=== PATIENT | female | born 1980 | race Caucasian/White ===

== ENCOUNTER 2016-12-29 22:30 | Emergency (ER) | payer OTHER ==
[~2016-12-29] VITALS: Ht 170.2 cm; Wt 130.0 kg
[~2016-12-29 22:30] MED LIST: CIPR500T2 PO; CYCL-36 PO; DARV PO; DIFL500T PO; DILA2TAB4 PO; METH750T2 PO
[2016-12-29 22:33] VITALS: BP 158/75; PULSE 96; RESP 15; TEMP 98.5; O2SAT 100
[2016-12-29] MEDS ORDERED: ONDANSETRON HCL 4 MG/2 ML VIAL IVP ONE (23:00)
[2016-12-29] MEDS ORDERED: SODIUM CHLORIDE 0.9% FLUSH 10 ML FLUSH IVF PRN (23:00)
[2016-12-29 23:33] LABS: BLOOD, URINE SMALL (NEG); COMMENT (UR) CULT NOT INDICATED; CULTURE IF INDICATED CULT NOT INDICATED; GLUCOSE,URINE NEG (NEG); KETONE, URINE NEG (NEG); MUCUS URINE FEW /lpf (OCC); NITRITE,URINE NEG (NEG); SQUAMOUS EPITHELIAL CELL URINE 2 /hpf (0-5); URINE COLOR YELLOW (YELLW/STRAW)
[2016-12-29] MEDS ORDERED: ORPHENADRINE INJ 60 MG/2 ML AMP IM ONE (23:45)
--- NOTE | 2016-12-30 00:27 | PD ---
HPI . Right flank pain Chief Complaint: Flank/Kidney Pain Time Seen by Provider: 22:55 Travel History International Travel<30 days: No Contact w/Intl Traveler<30days: No Traveled to known affect area: No History of Present Illness HPI Patient presents with chief complaint of flank pain. It is on the right. She describes a sharp pain which she rates 9/10. Onset was 10 hours ago. She denies any associated symptoms such as urinary tract symptoms, chemical neurological symptoms, fever, GI symptoms. She does state that her pain is exacerbated by movement and relieved by pressing on it. PFSH Past Medical History Cancer: Yes (breast lumpectomy bilat 1995) Cardiovascular Problems: Yes (HTN) Cerebrovascular Accident: Yes Diminished Hearing: No Neurologic: Yes (MENINGITIS) Reproductive: Yes (CYST LT OVARY) Integumentary: Yes (MRSA LT ANKLE 10/04) Migraines: Yes ?: Not LMP: 2014 : 7 Para: 2 Miscarriage: 5 : 0 Ovarian Cysts: Yes (left ovary) Tubal Ligation: Yes (2002) Past Surgical History Cholecystectomy: Yes Tonsillectomy: Yes ( WITH ADENOIDS REMOVED) Other Surgery: Yes (LUMPECTOMY WITH BREAST REDUCTION) Social History Alcohol Use: No Tobacco Use: Yes (1 PPD) Substance Use: No Allergies-Medications (Allergen,Severity, Reaction): Coded Allergies: morphine (Unverified Allergy, Severe, LOCAL HIVES, 12/29/16) tramadol (Unverified Allergy, Severe, VOMITING/ SEIZURE, 12/29/16) codeine (Unverified Allergy, Mild, DEEP SLEEP, 12/29/16) ketorolac (Unverified Allergy, Mild, VOMITING, 12/29/16) Reported Meds & Prescriptions Reported Meds & Active Scripts Active Dolobid (Diflunisal) 500 Mg Tab 500 Mg PO BIDPRN FOR PAIN Dilaudid (Hydromorphone HCl) 2 Mg Tab 2 Mg PO Q6HPRN Cipro (Ciprofloxacin) 500 Mg Tab 500 Mg PO BID Robaxin (Methocarbamol) 750 Mg Tab 750 Mg PO QIDPRN Darvocet-N 100 (Propoxyphene Napsylate/Acetam) Tab 1 Tab PO Q6HPRN FOR PAIN Reported Flexeril (Cyclobenzaprine HCl) 10 Mg Tab 10 Mg PO BID Review of Systems Except as stated in HPI: all other systems reviewed are Neg General / Constitutional: No: Fever, Chills Gastrointestinal: No: Nausea, Vomiting, Diarrhea Genitourinary: Positive: Other (previous hysterectomy), No: Urgency, Frequency , Dysuria Physical Exam Narrative GENERAL: Patient is awake and alert and in no acute distress. Obvious pain with movement. SKIN: warm/dry. HEAD: Normocephalic. Atraumatic. EYES: Pupils equal and round. No scleral icterus. No injection or drainage. ENT: No nasal bleeding or discharge. Mucous membranes pink and moist. NECK: Trachea midline. Full range of motion without pain.. CARDIOVASCULAR: Regular rate and rhythm. RESPIRATORY: No accessory muscle use. Clear to auscultation. Breath sounds equal bilaterally. GASTROINTESTINAL: Abdomen soft. Tender along the entire right side of her abdomen. Bowel sounds present. Nondistended. No CVA tenderness. MUSCULOSKELETAL: No obvious deformities. Obvious pain with movement. NEUROLOGICAL: Awake and alert. No obvious cranial nerve deficits. Motor grossly within normal limits. Normal speech. PSYCHIATRIC: Appropriate mood and affect; insight and judgment normal. Data Data Last Documented VS Vital Signs Date Time Temp Pulse Resp B/P (MAP) Pulse Ox O2 Delivery O2 Flow Rate FiO2 12/29/16 22:33 98.5 96 15 158/75 (102) 100 Room Air Orders Orders Urinalysis - C+S If Indicated (12/29/16 22:56) Ct Abd/Pel W/O Iv Contrast (12/29/16 22:56) Iv Access Insert/Monitor (12/29/16 22:56) Ondansetron Inj (Zofran Inj) (12/29/16 23:00) Sodium Chloride 0.9% Flush (Ns Flush) (12/29/16 23:00) Ed Urine Pregnancytest Poc (12/29/16 22:56) Orphenadrine Inj (Norflex Inj) (12/29/16 23:45) Labs Laboratory Tests Test 12/29/16 23:15 Urine Color YELLOW Urine Turbidity CLEAR Urine pH 6.0 Urine Specific [place] 1.036 Urine Protein 30 mg/dL Urine Glucose (UA) NEG mg/dL Urine Ketones NEG mg/dL Urine Occult Blood SMALL Urine Nitrite NEG Urine Bilirubin NEG Urine Urobilinogen 2.0 MG/DL Urine Leukocyte Esterase NEG Urine RBC 6 /hpf Urine WBC 2 /hpf Urine Squamous Epithelial Cells 2 /hpf Urine Mucus FEW /lpf Microscopic Urinalysis Comment CULT NOT INDICATED MDM Medical Decision Making Medical Screen Exam Complete: Yes Emergency Medical Condition: Yes Differential Diagnosis Differential diagnosis of flank pain includes but is not limited to kidney stone , pyelonephritis, musculoskeletal pain, PE Narrative Course This patient presents with right flank pain. Pain is exacerbated by movement. No associated symptoms. UA>>[address] abd/pelvis: No acute abnormality demonstrated. This patient's pain is most likely musculoskeletal. She reports allergies to codeine, ketorolac, morphine and tramadol. I will discharge her on Flexeril and ibuprofen. Diagnosis Primary Impression: Flank pain Patient Instructions: Flank Pain (ED), General Instructions Med/Other Pt SpecificInfo: Prescription(s) given Scripts Ibuprofen (Ibuprofen) 800 Mg Tab 800 MG PO Q8H Y for Pain/Inflammation, #60 TAB 0 Refills Prov: Anjana Do MD 12/30/16 Cyclobenzaprine (Flexeril) 10 Mg Tab 10 MG PO TID for Muscle Spasm, #15 TAB 0 Refills Prov: Anjana Do MD 12/30/16 Disposition: DISCHARGE HOME Condition: Stable Anjana Do MD Dec 30, 2016 00:26
--- NOTE | 2016-12-30 00:59 | RADRPT ---
EXAM DATE/TIME: 12/30/2016 00:34 [facility] COMPARISON: No previous studies available for comparison. INDICATIONS : Right flank pain. ORAL CONTRAST: No oral contrast ingested. RADIATION DOSE: 33.27 CTDIvol (mGy) ; High dose protocol; Patient body habitus MEDICAL HISTORY : Hypertension. Ovarian cysts. SURGICAL HISTORY : Cholecystectomy. Hysterectomy. ENCOUNTER: Initial ACUITY: 1 day PAIN SCALE: 8/10 LOCATION: Right flank TECHNIQUE: Volumetric scanning of the abdomen and pelvis was performed. Using automated exposure control and ad justment of the mA and/or kV according to patient size, radiation dose was kept as low as reasonably achievable to obtain optimal diagnostic quality images. DICOM format image data is available electro nically for review and comparison. FINDINGS: LOWER LUNGS: The visualized lower lungs are clear. LIVER: Homogeneous density without lesion. There is no dilation of the biliary tree. Patient has had cholec ystectomy.. SPLEEN: Normal size without lesion. PANCREAS: Within normal limits. KIDNEYS: Normal in size and shape. There is no mass, stone, or hydronephrosis. ADRENAL GLANDS: Within normal limits. VASCULAR: There is no aortic aneurysm. BOWEL/MESENTERY: The stomach, small bowel, and colon demonstrate no acute abnormality. There is no free intraperitone al air or fluid. The appendix is well-visualized, normal. ABDOMINAL WALL: Within normal limits. RETROPERITONEUM: There is no lymphadenopathy. BLADDER: No wall thickening or mass. REPRODUCTIVE: Previous hysterectomy. INGUINAL: There is no lymphadenopathy or hernia. MUSCULOSKELETAL: No acute bony abnormality demonstrated. CONCLUSION: No acute abnormality demonstrated. Fernando Callaway MD on December 30, 2016 at 0:55 Board Certified Radiologist. This report was verified electronically.
[2016-12-30] MEDS ORDERED: CYCL10TA PO (01:06)
[2016-12-30] MEDS ORDERED: IBUP1TAB7 PO (01:07)
== END 2016-12-30 01:18 | disposition home or self-care (01) ==
LOC: NEPC 22:30
DX: R10.9 Unspecified abdominal pain (principal); F17.200 Nicotine dependence, unspecified, uncomplicated
CPT/HCPCS: 74176; 81001; 84703; 96372; 96374; 99285; J2360; J2405

== ENCOUNTER 2017-01-04 20:00 | Emergency (ER) | payer OTHER ==
[~2017-01-04] VITALS: Ht 160 cm; Wt 132.4 kg
[~2017-01-04 20:00] MED LIST changes: +CYCL10TA PO; +IBUP1TAB7 PO
[2017-01-04 20:03] VITALS: BP 141/89; PULSE 97; RESP 20; TEMP 98.3; O2SAT 98
[2017-01-04 20:19] VITALS: BP 146/81; PULSE 92; RESP 20; O2SAT 99
[2017-01-04] MEDS ORDERED: SODIUM CHLOR 0.9% 1000 ML INJ 1,000 ML IV SCH ×2 (20:37→21:45)
[2017-01-04] MEDS ORDERED: ONDANSETRON HCL 4 MG/2 ML VIAL IVP ONE (20:45)
[2017-01-04] MEDS ORDERED: SODIUM CHLORIDE 0.9% FLUSH 10 ML FLUSH IV FLUSH PRN (20:45)
--- NOTE | 2017-01-04 20:46 | PD ---
HPI Chief Complaint: Abdominal Pain Time Seen by Provider: 20:25 Travel History International Travel<30 days: No Contact w/Intl Traveler<30days: No Traveled to known affect area: No History of Present Illness HPI The patient is a 36-year-old female that complains of pain in the midline epigastrium as well as suprapubic area midline for 2 days. She does have nausea and vomiting and noticed some bright red stools today. The nausea and vomiting began today. She states she has had diarrhea for the past 4 years. The patient used to be a frequent visitor here in 2007 but moved out of town and has just moved back into town. She does not have a primary care physician or medical records auditor. She states she is allergic to all pain medicines except Dilaudid. She has had a hysterectomy with tubes removed but still has her ovaries. PFSH Past Medical History Asthma: Yes Cancer: Yes (breast lumpectomy bilat 1995, cervical cancer ) Cardiovascular Problems: Yes (HTN) Chemotherapy: Yes Cerebrovascular Accident: Yes Diminished Hearing: No Hypertension: Yes Neurologic: Yes (MENINGITIS) Reproductive: Yes (CYST LT OVARY) Integumentary: Yes (MRSA LT ANKLE 10/04) Migraines: Yes Radiation Therapy: Yes Tetanus Vaccination: < 5 Years Influenza Vaccination: No ?: Unknown : 6 Para: 4 : 0 Ovarian Cysts: Yes (left ovary) Tubal Ligation: Yes (2002) Past Surgical History Cholecystectomy: Yes Hysterectomy: Yes Tonsillectomy: Yes ( WITH ADENOIDS REMOVED) Other Surgery: Yes (BILAT LUMPECTOMY WITH BREAST REDUCTION, BILAT CARPEL TUNNEL ) Social History Alcohol Use: No Tobacco Use: Yes (1 PPD) Substance Use: No Allergies-Medications (Allergen,Severity, Reaction): Coded Allergies: morphine (Unverified Allergy, Severe, LOCAL HIVES, 12/29/16) tramadol (Unverified Allergy, Severe, VOMITING/ SEIZURE, 12/29/16) codeine (Unverified Allergy, Mild, DEEP SLEEP, 12/29/16) ketorolac (Unverified Allergy, Mild, VOMITING, 12/29/16) Reported Meds & Prescriptions Reported Meds & Active Scripts Active Ibuprofen 800 Mg Tab 800 Mg PO Q8H PRN Flexeril (Cyclobenzaprine HCl) 10 Mg Tab 10 Mg PO TID Dolobid (Diflunisal) 500 Mg Tab 500 Mg PO BIDPRN FOR PAIN Dilaudid (Hydromorphone HCl) 2 Mg Tab 2 Mg PO Q6HPRN Ciprofloxacin Hcl 500 Mg Tab 500 Mg PO BID Methocarbamol 750 Mg Tab 750 Mg PO QIDPRN Darvocet-N 100 (Propoxyphene Napsylate/Acetam) Tab 1 Tab PO Q6HPRN FOR PAIN Reported Flexeril (Cyclobenzaprine HCl) 10 Mg Tab 10 Mg PO BID Review of Systems Except as stated in HPI: all other systems reviewed are Neg Physical Exam Narrative GENERAL: The patient is alert, oriented 3, obese in moderate apparent distress with her abdominal discomfort. Her vital signs show blood pressure 141/89 but are otherwise normal. SKIN: Focused skin assessment warm/dry. HEAD: Atraumatic. Normocephalic. EYES: Pupils equal and round. No scleral icterus. No injection or drainage. ENT: No nasal bleeding or discharge. Mucous membranes pink and moist. NECK: Trachea midline. No JVD. CARDIOVASCULAR: Regular rate and rhythm. No murmur appreciated. RESPIRATORY: No accessory muscle use. Clear to auscultation. Breath sounds equal bilaterally. GASTROINTESTINAL: Abdomen soft, with tenderness to direct palpation in the midline epigastrium and midline suprapubic area, nondistended. Hepatic and splenic margins not palpable. No guarding or rebound is present. MUSCULOSKELETAL: No obvious deformities. No clubbing. No cyanosis. No edema. NEUROLOGICAL: Awake and alert. No obvious cranial nerve deficits. Motor grossly within normal limits. Normal speech. PSYCHIATRIC: Appropriate mood and affect; insight and judgment normal. RECTAL EXAM: No masses or tenderness, stool is brown/bright red and guaiac- positive. Only a tiny amount of stool was recovered. Data Data Last Documented VS Vital Signs Date Time Temp Pulse Resp B/P (MAP) Pulse Ox O2 Delivery O2 Flow Rate FiO2 01/04/17 21:11 20 01/04/17 21:11 100 131/60 (83) 99 01/04/17 20:03 98.3 Orders Orders Complete Blood Count With Diff (01/04/17 20:37) Comprehensive Metabolic Panel (01/04/17 20:37) Lipase (01/04/17 20:37) Urinalysis - C+S If Indicated (01/04/17 20:37) Ct Abd/Pel W Iv Contrast(Rout) (01/04/17 20:37) Iv Access Insert/Monitor (01/04/17 20:37) Ecg Monitoring (01/04/17 20:37) Oximetry (01/04/17 20:37) Ondansetron Inj (Zofran Inj) (01/04/17 20:45) Sodium Chlor 0.9% 1000 Ml Inj (Ns 1000 M (01/04/17 20:37) Sodium Chloride 0.9% Flush (Ns Flush) (01/04/17 20:45) Drug Screen, Random Urine (01/04/17 20:37) Iohexol 350 Inj (Omnipaque 350 Inj) (01/04/17 21:20) Pantoprazole Inj (Protonix Inj) (01/04/17 21:45) Famotidine Inj (Pepcid Inj) (01/04/17 21:45) Hydromorphone Pf Inj (Dilaudid Pf Inj) (01/04/17 21:45) Sodium Chlor 0.9% 1000 Ml Inj (Ns 1000 M (01/04/17 21:45) Labs Laboratory Tests Test 01/04/17 20:50 White Blood Count 12.1 TH/MM3 Red Blood Count 4.82 MIL/MM3 Hemoglobin 14.3 GM/DL Hematocrit 41.7 % Mean Corpuscular Volume 86.4 FL Mean Corpuscular Hemoglobin 29.7 PG Mean Corpuscular Hemoglobin Concent 34.3 % Red Cell Distribution Width 12.7 % Platelet Count 290 TH/MM3 Mean Platelet Volume 8.8 FL Neutrophils (%) (Auto) 67.6 % Lymphocytes (%) (Auto) 25.5 % Monocytes (%) (Auto) 4.9 % Eosinophils (%) (Auto) 1.3 % Basophils (%) (Auto) 0.7 % Neutrophils # (Auto) 8.1 TH/MM3 Lymphocytes # (Auto) 3.1 TH/MM3 Monocytes # (Auto) 0.6 TH/MM3 Eosinophils # (Auto) 0.2 TH/MM3 Basophils # (Auto) 0.1 TH/MM3 CBC Comment DIFF FINAL Differential Comment Urine Color YELLOW Urine Turbidity SLIGHT Urine pH 5.5 Urine Specific Sun 1.030 Urine Protein NEG mg/dL Urine Glucose (UA) NEG mg/dL Urine Ketones TRACE mg/dL Urine Occult Blood MOD Urine Nitrite NEG Urine Bilirubin NEG Urine Leukocyte Esterase NEG Urine RBC 4-9 /hpf Urine WBC 0-2 /hpf Urine Squamous Epithelial Cells > 8 /hpf Urine Calcium Oxalate Crystals MOD /hpf Urine Bacteria OCC /hpf Microscopic Urinalysis Comment CULT NOT INDICATED Blood Urea Nitrogen 11 MG/DL Creatinine 0.85 MG/DL Random Glucose 85 MG/DL Total Protein 7.3 GM/DL Albumin 3.8 GM/DL Calcium Level 8.9 MG/DL Alkaline Phosphatase 116 U/L Aspartate Amino Transf (AST/SGOT) 16 U/L Alanine Aminotransferase (ALT/SGPT) 24 U/L Total Bilirubin 0.2 MG/DL Sodium Level 141 MEQ/L Potassium Level 3.6 MEQ/L Chloride Level 106 MEQ/L Carbon Dioxide Level 28.6 MEQ/L Anion Gap 6 MEQ/L Estimat Glomerular Filtration Rate 76 ML/MIN Lipase 195 U/L Urine Opiates Screen NEG Urine Barbiturates Screen NEG Urine Amphetamines Screen NEG Urine Benzodiazepines Screen NEG Urine Cocaine Screen NEG Urine Cannabinoids Screen NEG MDM Medical Decision Making Medical Screen Exam Complete: Yes Emergency Medical Condition: Yes Medical Record Reviewed: Yes Interpretation(s) The urine toxicology screen is negative for all substances tested. The complete metabolic profile is normal and the lipase is normal. The CBC shows a white count of 12,100 but is otherwise unremarkable. The urinalysis shows specific gravity of 1.030, trace ketones, moderate occult blood, moderate calcium oxalate crystals but is otherwise normal and culture is not indicated. The CT abdomen/pelvis with IV contrast shows no acute disease. Differential Diagnosis Anemia, colitis, appendicitis-unlikely, diverticulitis, urinary tract infection , drug seeking behavior Narrative Course It is now 0930 and the patient is demanding something for pain. The only thing she can take is Dilaudid. The patient is suspected of drug seeking behavior. At this time the impression is abdominal pain etiology undetermined. Diagnosis Primary Impression: Abdominal pain of unknown etiology Med/Other Pt SpecificInfo: Prescription(s) given Scripts Ranitidine (Ranitidine) 150 Mg Tab 150 MG PO BID for Heartburn Management, #60 TAB 0 Refills Prov: Zion Marx MD 01/04/17 Promethazine (Phenergan) 25 Mg Tablet 25 MG PO Q6H Y for NAUSEA OR VOMITING, #30 TAB 0 Refills Prov: Zion Marx MD 01/04/17 Omeprazole Magnesium (Prilosec) 20 Mg Tab 20 MG PO DAILY, #30 Prov: Zion Marx MD 01/04/17 Disposition: 01 DISCHARGE HOME Condition: Stable Zion Marx MD Jan 04, 2017 20:46
[2017-01-04 21:05] LABS: AUTOMATED NEUTROPHIL # 8.1 TH/MM3 (1.8-7.7); BASOPHIL # 0.1 TH/MM3 (0-0.2); BASOPHIL % 0.7 % (0.0-2.0); BLOOD, URINE MOD (NEG); EOSINOPHIL # 0.2 TH/MM3 (0-0.4); EOSINOPHIL % 1.3 % (0.0-4.0); GLUCOSE,URINE NEG (NEG); HEMATOCRIT 41.7 % (35.0-46.0); KETONE, URINE TRACE mg/dL (NEG); LYMPH % 25.5 % (9.0-44.0); LYMPHOCYTE # 3.1 TH/MM3 (1.0-4.8); MEAN CELL VOLUME 86.4 FL (80.0-100.0); MEAN CORPUSCULAR HEMOGLOBIN 29.7 PG (27.0-34.0); MEAN CORPUSCULAR HGB CONC 34.3 % (32.0-36.0); MONO % 4.9 % (0.0-8.0); NEUT % 67.6 % (16.0-70.0); NITRITE,URINE NEG (NEG); PH, URINE 5.5 (5.0-8.5); PLATELET COUNT 290 TH/MM3 (150-450); RED BLOOD COUNT 4.82 MIL/MM3 (4.00-5.30); RED CELL DISTRIBUTION WIDTH 12.7 % (11.6-17.2); WHITE BLOOD COUNT 12.1 TH/MM3 (4.0-11.0)
[2017-01-04 21:07] LABS: HEMO FLAGS DIFF FINAL
[2017-01-04 21:09] LABS: URINE COLOR YELLOW (YELLW/STRAW)
[2017-01-04 21:10] LABS: BACTERIA, URINE OCC /hpf; CALCIUM OXALATE CRYSTALS,URINE MOD /hpf; COMMENT (UR) CULT NOT INDICATED; CULTURE IF INDICATED CULT NOT INDICATED; SQUAMOUS EPITHELIAL CELL URINE > 8 /hpf (0-5); WBC, URINE 0-2 /hpf (0-5)
[2017-01-04 21:11] VITALS: BP 131/60; PULSE 100; RESP 20; O2SAT 99
[2017-01-04 21:12] LABS: CHLORIDE 106 MEQ/L (98-107); POTASSIUM 3.6 MEQ/L (3.5-5.1); SODIUM (NA) 141 MEQ/L (136-145)
[2017-01-04 21:16] LABS: ANION GAP 6 MEQ/L (5-15); BICARBONATE 28.6 MEQ/L (21.0-32.0); BLOOD UREA NITROGEN 11 MG/DL (7-18)
[2017-01-04 21:19] LABS: ALT (GPT) 24 U/L (10-53); AST (GOT) 16 U/L (15-37); GLOMERULAR FILTRATION RATE 76 ML/MIN (>89)
[2017-01-04 21:20] LABS: TOTAL BILIRUBIN ADULT 0.2 MG/DL (0.2-1.0)
[2017-01-04] MEDS ORDERED: IOHEXOL 350 MG/ML 10 ML VIAL (for RAD DIAG) IVCONTRAST ONE (21:20)
[2017-01-04 21:22] LABS: ALKALINE PHOSPHATASE 116 U/L (45-117)
[2017-01-04] MEDS ORDERED: HYDROmorphone HCL PF 1 MG/ML VIAL IV PUSH ONE (21:45)
[2017-01-04] MEDS ORDERED: PANTOPRAZOLE SODIUM 40 MG VIAL IVP ONE (21:45)
[2017-01-04] MEDS ORDERED: FAMOTIDINE 20 MG/2 ML VIAL IV PUSH ONE (21:45)
--- NOTE | 2017-01-04 21:49 | RADRPT ---
EXAM DATE/TIME: 01/04/2017 21:14 [facility] COMPARISON: CT ABDOMEN & PELVIS W/O CONTRAST, December 30, 2016, 0:34. INDICATIONS : Abdominal pain. IV CONTRAST: 100 cc Omnipaque 350 (iohexol) IV ORAL CONTRAST: No oral contrast ingested. RADIATION DOSE: 26.18 CTDIvol (mGy) ; Patient body habitus MEDICAL HISTORY : Hypertension. Cervical cancer. SURGICAL HISTORY : Tubal ligation. Hysterectomy. ENCOUNTER: Initial ACUITY: 2 days PAIN SCALE: 8/10 LOCATION: abdomen TECHNIQUE: Volumetric scanning of the abdomen and pelvis was performed. Using automated exposure control and ad justment of the mA and/or kV according to patient size, radiation dose was kept as low as reasonably achievable to obtain optimal diagnostic quality images. DICOM format image data is available electro nically for review and comparison. FINDINGS: LOWER LUNGS: The visualized lower lungs are clear. LIVER: Homogeneous density without lesion. There is no dilation of the biliary tree. Prior cholecystectomy. SPLEEN: Normal size without lesion. PANCREAS: Within normal limits. KIDNEYS: Normal in size and shape. There is no mass, stone or hydronephrosis. ADRENAL GLANDS: Within normal limits. VASCULAR: There is no aortic aneurysm. BOWEL/MESENTERY: The stomach, small bowel, and colon demonstrate no acute abnormality. There is no free intraperitone al air or fluid. ABDOMINAL WALL: Within normal limits. RETROPERITONEUM: There is no lymphadenopathy. BLADDER: No wall thickening or mass. REPRODUCTIVE: Prior hysterectomy. No adnexal mass or fluid collection. INGUINAL: There is no lymphadenopathy or hernia. MUSCULOSKELETAL: Within normal limits for patient age. CONCLUSION: No acute disease. Yovani English Jr., MD on January 04, 2017 at 21:45 Board Certified Radiologist. This report was verified electronically.
[2017-01-04] MEDS ORDERED: PRIL20TA2 PO (21:59)
[2017-01-04] MEDS ORDERED: PROM25TA10 PO (21:59)
[2017-01-04 22:00] VITALS: BP 117/72; PULSE 83; RESP 20; O2SAT 99
[2017-01-04] MEDS ORDERED: RANI150T PO (22:00)
[2017-01-04 23:12] VITALS: BP 127/70
== END 2017-01-04 23:20 | disposition home or self-care (01) ==
LOC: PHED 20:00
DX: R10.13 Epigastric pain (principal); F17.210 Nicotine dependence, cigarettes, uncomplicated
CPT/HCPCS: 74177; 80053; 80307; 81001; 83690; 85025; 96361; 96374; 96375; 99285; C9113; J1170; J2405; J7030; Q9967

== ENCOUNTER 2017-02-09 13:55 | Emergency (ER) | payer OTHER ==
[~2017-02-09 13:55] MED LIST changes: +PRIL20TA2 PO; +PROM25TA10 PO; +RANI150T PO
[2017-02-09 13:56] VITALS: BP 137/90; PULSE 102; RESP 17; TEMP 98; O2SAT 100
[2017-02-09] MEDS ORDERED: cefTRIAXone INJ 2,000 MG in SODIUM CHLORIDE 0.9% INJ 100 ML IV ONE (14:30)
[2017-02-09] MEDS ORDERED: VANCOMYCIN INJ 1,950 MG in SODIUM CHLORID 0.9% 500 ML INJ 500 ML IV ONE (14:30)
[2017-02-09] MEDS ORDERED: SODIUM CHLOR 0.9% 1000 ML INJ 1,000 ML IV ONE ×2 (14:30)
--- NOTE | 2017-02-09 14:48 | PD ---
HPI Chief Complaint: Fever Time Seen by Provider: 14:22 Travel History International Travel<30 days: No Contact w/Intl Traveler<30days: No Traveled to known affect area: No History of Present Illness HPI Patient is a 36-year-old female who presents to emergency room for evaluation of possible meningitis. She reports that she develops high fevers yesterday, reports that this morning, she woke up with neck stiffness. Patient also reports that she has a posterior headache with photophobia, reports that she has had meningitis in the past, reports that her symptoms feel exactly the same as when she was diagnosed with meningitis. Patient reports that she was sick 2 weeks ago with flulike symptoms, reports that she had a nonproductive cough at that time. Reports no recent sick contacts. Patient denies any recent travels or trips. Reports that she did take a dose of motrin prior to coming to the ER. She currently is not on any anticoagulants PFSH Past Medical History Asthma: Yes Cancer: Yes (breast lumpectomy bilat 1995, cervical cancer ) Cardiovascular Problems: Yes (HTN) Chemotherapy: Yes Cerebrovascular Accident: Yes Diminished Hearing: No Hypertension: Yes Neurologic: Yes (MENINGITIS) Reproductive: Yes (CYST LT OVARY) Integumentary: Yes (MRSA LT ANKLE 10/04) Migraines: Yes Radiation Therapy: Yes ?: Not : 6 Para: 4 : 0 Ovarian Cysts: Yes (left ovary) Tubal Ligation: Yes (2002) Past Surgical History Cholecystectomy: Yes Hysterectomy: Yes Tonsillectomy: Yes ( WITH ADENOIDS REMOVED) Other Surgery: Yes (BILAT LUMPECTOMY WITH BREAST REDUCTION, BILAT CARPEL TUNNEL ) Social History Alcohol Use: No Tobacco Use: Yes (1 PPD) Substance Use: No Allergies-Medications (Allergen,Severity, Reaction): Coded Allergies: morphine (Verified Allergy, Severe, LOCAL HIVES, 02/09/17) tramadol (Verified Allergy, Severe, VOMITING/ SEIZURE, 02/09/17) codeine (Verified Allergy, Mild, DEEP SLEEP, 02/09/17) ketorolac (Verified Allergy, Mild, VOMITING, 02/09/17) Reported Meds & Prescriptions Reported Meds & Active Scripts Active Augmentin (Amoxicillin-Clavulanate) 875-125 Mg Tab 1 Tab PO BID 10 Days Ranitidine (Ranitidine HCl) 150 Mg Tab 150 Mg PO BID Phenergan (Promethazine HCl) 25 Mg Tablet 25 Mg PO Q6H PRN Prilosec (Omeprazole Magnesium) 20 Mg Tab 20 Mg PO DAILY Ibuprofen 800 Mg Tab 800 Mg PO Q8H PRN Flexeril (Cyclobenzaprine HCl) 10 Mg Tab 10 Mg PO TID Review of Systems General / Constitutional: Positive: Fever, Chills Eyes: Positive: Photophobia, No: Visual changes HENT: Positive: Neck Stiffness, Neck Pain, No: Headaches Cardiovascular: No: Chest Pain or Discomfort Respiratory: Positive: Cough, No: Shortness of Breath Gastrointestinal: No: Abdominal Pain Genitourinary: No: Dysuria Musculoskeletal: No: Pain Skin: No Rash Neurologic: No: Weakness Psychiatric: No: Depression Endocrine: No: Polydipsia Hematologic/Lymphatic: No: Easy Bruising Physical Exam Narrative GENERAL: moderate distress SKIN: Focused skin assessment warm/dry. HEAD: Atraumatic. Normocephalic. EYES: Pupils equal and round. No scleral icterus. No injection or drainage. ENT: No nasal bleeding or discharge. Mucous membranes pink and moist. NECK: Trachea midline. No JVD. + nuchal rigidity CARDIOVASCULAR: Regular rate and rhythm. No murmur appreciated. RESPIRATORY: No accessory muscle use. Clear to auscultation. Breath sounds equal bilaterally. GASTROINTESTINAL: Abdomen soft, non-tender, nondistended. Hepatic and splenic margins not palpable. MUSCULOSKELETAL: No obvious deformities. No clubbing. No cyanosis. No edema. NEUROLOGICAL: Awake and alert. No obvious cranial nerve deficits. Motor grossly within normal limits. Normal speech. PSYCHIATRIC: Anxious mood and affect; insight and judgment normal. Data Data Last Documented VS Vital Signs Date Time Temp Pulse Resp B/P (MAP) Pulse Ox O2 Delivery O2 Flow Rate FiO2 02/09/17 19:50 02/09/17 18:04 92 18 100 Room Air 02/09/17 13:56 98.0 Orders Orders Complete Blood Count With Diff (02/09/17 14:22) Comprehensive Metabolic Panel (02/09/17 14:22) Prothrombin Time / Inr (Pt) (02/09/17 14:22) Act Partial Throm Time (Ptt) (02/09/17 14:) Urinalysis - C+S If Indicated (02/09/17 14:) Bacterial Antigen Csf (02/09/17 14:22) Csf Cell Count + Differential (02/09/17 14:22) Glucose, Csf (02/09/17 14:22) Total Protein, Csf (02/09/17 14:22) Csf Culture And Gram Stain (02/09/17 14:22) Influenzae A/B Antigen (02/09/17 14:22) Blood Culture (02/09/17 14:22) Ct Brain W/O Iv Contrast(Rout) (02/09/17 14:22) Ed Urine Pregnancytest Poc (02/09/17 14:22) Sodium Chlor 0.9% 1000 Ml Inj (Ns 1000 M (02/09/17 14:30) Sodium Chlor 0.9% 1000 Ml Inj (Ns 1000 M (02/09/17 14:30) Vancomycin Inj (Vancomycin Inj) (02/09/17 14:30) Ceftriaxone Inj (Rocephin Inj) (02/09/17 14:30) Dexamethasone Inj (Decadron Inj) (02/09/17 15:00) Lumbar Puncture (02/09/17 15:30) Acetaminophen (Tylenol) (02/09/17 16:45) Labs Laboratory Tests Test 02/09/17 14:50 02/09/17 15:50 02/09/17 17:39 White Blood Count 10.6 TH/MM3 Red Blood Count 5.16 MIL/MM3 Hemoglobin 15.7 GM/DL Hematocrit 45.5 % Mean Corpuscular Volume 88.1 FL Mean Corpuscular Hemoglobin 30.5 PG Mean Corpuscular Hemoglobin Concent 34.6 % Red Cell Distribution Width 13.6 % Platelet Count 296 TH/MM3 Mean Platelet Volume 8.5 FL Neutrophils (%) (Auto) 63.4 % Lymphocytes (%) (Auto) 26.5 % Monocytes (%) (Auto) 8.0 % Eosinophils (%) (Auto) 1.5 % Basophils (%) (Auto) 0.6 % Neutrophils # (Auto) 6.7 TH/MM3 Lymphocytes # (Auto) 2.8 TH/MM3 Monocytes # (Auto) 0.8 TH/MM3 Eosinophils # (Auto) 0.2 TH/MM3 Basophils # (Auto) 0.1 TH/MM3 CBC Comment DIFF FINAL Differential Comment Prothrombin Time 9.7 SEC Prothromb Time International Ratio 1.0 RATIO Activated Partial Thromboplast Time 27.9 SEC Blood Urea Nitrogen 13 MG/DL Creatinine 0.83 MG/DL Random Glucose 72 MG/DL Total Protein 7.8 GM/DL Albumin 4.0 GM/DL Calcium Level 9.3 MG/DL Alkaline Phosphatase 126 U/L Aspartate Amino Transf (AST/SGOT) 14 U/L Alanine Aminotransferase (ALT/SGPT) 31 U/L Total Bilirubin 0.3 MG/DL Sodium Level 139 MEQ/L Potassium Level 4.0 MEQ/L Chloride Level 104 MEQ/L Carbon Dioxide Level 28.9 MEQ/L Anion Gap 6 MEQ/L Estimat Glomerular Filtration Rate 78 ML/MIN Urine Color YELLOW Urine Turbidity CLEAR Urine pH 7.0 Urine Specific [place] 1.019 Urine Protein NEG mg/dL Urine Glucose (UA) NEG mg/dL Urine Ketones NEG mg/dL Urine Occult Blood NEG Urine Nitrite NEG Urine Bilirubin NEG Urine Urobilinogen LESS THAN 2.0 MG/DL Urine Leukocyte Esterase NEG Urine RBC 3 /hpf Urine WBC LESS THAN 1 /hpf Urine Squamous Epithelial Cells 8 /hpf Urine Mucus FEW /lpf Microscopic Urinalysis Comment CATH-CULT NOT IND CSF Volume (Tube 1) 3.0 ML CSF Supernatant Color (tube 1) CLEAR CSF Gross Blood (Tube 1) 0 CSF Volume (Tube 2) 3.0 ML CSF Supernatant Color (tube 2) CLEAR CSF WBC (Tube 2) 3 /MM3 CSF RBC (Tube 2) 0 /MM3 CSF Volume (Tube 3) 3.0 ML CSF Supernatant Color (tube 3) CLEAR CSF Volume (Tube 4) 6.5 ML CSF Supernatant Color (tube 4) CLEAR CSF Gross Blood (Tube 4) 0 CSF Neutrophils 0 % CSF Lymphocytes 96 % CSF Monocytes 4 % CSF Glucose 53 MG/DL CSF Total Protein 38.4 MG/DL MDM Medical Decision Making Medical Screen Exam Complete: Yes Emergency Medical Condition: Yes Medical Record Reviewed: Yes Interpretation(s) Vital Signs Date Time Temp Pulse Resp B/P (MAP) Pulse Ox O2 Delivery O2 Flow Rate FiO2 02/09/17 13:56 98.0 102 17 137/90 (106) 100 Room Air Differential Diagnosis Cephalgia, meningitis, pneumonia, viral syndrome Narrative Course During the course of the patients emergency department visit, the patients history, examination, and differential diagnosis were reviewed with the patient. The patient was placed on a athletic monitor with oximetry and frequent blood pressure monitoring. The patient had an IV access obtained and blood work sent for analysis. The patient was initially provided 2 g of IV Rocephin, IV vancomycin, IV decadron as well as IVF. Patient with symptoms which are concerning for possible meningitis, patient is agreeable to lumbar puncture The patients laboratory studies were reviewed and remarkable for : Laboratory Tests Test 02/09/17 14:50 02/09/17 15:50 02/09/17 17:39 White Blood Count 10.6 TH/MM3 (4.0-11.0) Red Blood Count 5.16 MIL/MM3 (4.00-5.30) Hemoglobin 15.7 GM/DL (11.6-15.3) Hematocrit 45.5 % (35.0-46.0) Mean Corpuscular Volume 88.1 FL (80.0-100.0) Mean Corpuscular Hemoglobin 30.5 PG (27.0-34.0) Mean Corpuscular Hemoglobin Concent 34.6 % (32.0-36.0) Red Cell Distribution Width 13.6 % (11.6-17.2) Platelet Count 296 TH/MM3 (150-450) Mean Platelet Volume 8.5 FL (7.0-11.0) Neutrophils (%) (Auto) 63.4 % (16.0-70.0) Lymphocytes (%) (Auto) 26.5 % (9.0-44.0) Monocytes (%) (Auto) 8.0 % (0.0-8.0) Eosinophils (%) (Auto) 1.5 % (0.0-4.0) Basophils (%) (Auto) 0.6 % (0.0-2.0) Neutrophils # (Auto) 6.7 TH/MM3 (1.8-7.7) Lymphocytes # (Auto) 2.8 TH/MM3 (1.0-4.8) Monocytes # (Auto) 0.8 TH/MM3 (0-0.9) Eosinophils # (Auto) 0.2 TH/MM3 (0-0.4) Basophils # (Auto) 0.1 TH/MM3 (0-0.2) CBC Comment DIFF FINAL Differential Comment Prothrombin Time 9.7 SEC (9.8-11.6) Prothromb Time International Ratio 1.0 RATIO Activated Partial Thromboplast Time 27.9 SEC (24.3-30.1) Blood Urea Nitrogen 13 MG/DL (7-18) Creatinine 0.83 MG/DL (0.50-1.00) Random Glucose 72 MG/DL (74-106) Total Protein 7.8 GM/DL (6.4-8.2) Albumin 4.0 GM/DL (3.4-5.0) Calcium Level 9.3 MG/DL (8.5-10.1) Alkaline Phosphatase 126 U/L (45-117) Aspartate Amino Transf (AST/SGOT) 14 U/L (15-37) Alanine Aminotransferase (ALT/SGPT) 31 U/L (10-53) Total Bilirubin 0.3 MG/DL (0.2-1.0) Sodium Level 139 MEQ/L (136-145) Potassium Level 4.0 MEQ/L (3.5-5.1) Chloride Level 104 MEQ/L (98-107) Carbon Dioxide Level 28.9 MEQ/L (21.0-32.0) Anion Gap 6 MEQ/L (5-15) Estimat Glomerular Filtration Rate 78 ML/MIN (>89) Urine Color YELLOW (YELLW/STRAW) Urine Turbidity CLEAR (CLEAR) Urine pH 7.0 (5.0-8.5) Urine Specific [place] 1.019 (1.002-1.035) Urine Protein NEG mg/dL (NEG-TRACE) Urine Glucose (UA) NEG mg/dL (NEG) Urine Ketones NEG mg/dL (NEG) Urine Occult Blood NEG (NEG) Urine Nitrite NEG (NEG) Urine Bilirubin NEG (NEG) Urine Urobilinogen LESS THAN 2.0 MG/DL (LESS Urine Leukocyte Esterase NEG (NEG) Urine RBC 3 /hpf (0-3) Urine WBC LESS THAN 1 /hpf (0-5) Urine Squamous Epithelial Cells 8 /hpf (0-5) Urine Mucus FEW /lpf (OCC) Microscopic Urinalysis Comment CATH-CULT NOT IND CSF Volume (Tube 1) 3.0 ML CSF Supernatant Color (tube 1) CLEAR (CLEAR) CSF Gross Blood (Tube 1) 0 (0) CSF Volume (Tube 2) 3.0 ML CSF Supernatant Color (tube 2) CLEAR (CLEAR) CSF WBC (Tube 2) 3 /MM3 (0-10) CSF RBC (Tube 2) 0 /MM3 (NONE) CSF Volume (Tube 3) 3.0 ML CSF Supernatant Color (tube 3) CLEAR (CLEAR) CSF Volume (Tube 4) 6.5 ML CSF Supernatant Color (tube 4) CLEAR (CLEAR) CSF Gross Blood (Tube 4) 0 (0) CSF Neutrophils 0 % CSF Lymphocytes 96 % CSF Monocytes 4 % CSF Glucose 53 MG/DL (40-80) CSF Total Protein 38.4 MG/DL (15.0-45.0) Radiology studies were reviewed and remarkable for; Last Impressions Head CT 02/09/17 1422 Signed Impressions: Service Date/Time: January 14:42 - CONCLUSION: 1. Normal CT of the brain. 2. Paranasal sinus disease with mucosal swelling and opacification involving the ethmoid and sphenoid sinuses. Alex Reaves MD CT of the brain unremarkable, she does have paranasal sinus disease with mucosal swelling, patient with most likely sinusitis. cbc: WNL bmp: wnl UA: Negative ketones, negative nitrates, negative leuk esterase CSF: Clear, 3 white blood cells, 0 neutrophils, 96 leukocytes, 53 glucose Patient with most likely acute sinusitis, patient is feeling much better at this time. Plan to treat her with Augmentin. She will follow up with all cultures from today. She will also follow-up with a primary care doctor, signs and symptoms of when to return to the emergency room was reviewed with patient in detail. Critical Care Narrative Aggregate critical care time was 30 minutes. Time to perform other separately billable procedures was not included in the critical care time. My time did not include minutes spent treating any other patients simultaneously or on activities that did not directly contribute to the patient's treatment. The services I provided to this patient were to treat and/or prevent clinically significant deterioration that could result in: , decompensation, deterioration I provided critical care services requiring my management, as noted below: Chart data review, documentation time, medication orders and management, vital sign assessments/reviewing monitor data, ordering and reviewing lab tests, ordering and interpreting/reviewing x-rays and diagnostic studies, care of the patient and discussion of the patient with the admitting physicians. Diagnosis Primary Impression: Sinusitis Qualified Codes: J32.1 - Chronic frontal sinusitis Additional Impression: Cephalgia Qualified Codes: R51 - Headache Patient Instructions: General Instructions Departure Forms: Tests/Procedures, Work Release Enter return to work date: Feb 13, 2017 Additional Instructions: Please provide patient with a copy of their lab work and studies at discharge* * Please follow up with your primary care doctor in 2-3 days Return to the ER if symptoms worsen or progress Return to the ER as needed Please follow up with all cultures from today Med/Other Pt SpecificInfo: Prescription(s) given Scripts Amoxicillin-Clavulanate (Augmentin) 875-125 Mg Tab 1 TAB PO BID for Infection for 10 Days, #20 TAB 0 Refills Prov: Sandy Perez DO 02/09/17 Disposition: 01 DISCHARGE HOME Condition: Stable Sandy Perez DO Feb 09, 2017 14:48
--- NOTE | 2017-02-09 14:51 | RADRPT ---
EXAM DATE/TIME: 02/09/2017 14:42 [facility] COMPARISON: No previous studies available for comparison. INDICATIONS : Headache, stiff neck, photophobia. RADIATION DOSE: 36.57 CTDIvol (mGy) MEDICAL HISTORY : Stroke. Cardiovascular disease Hypertension. SURGICAL HISTORY : None. ENCOUNTER: Initial ACUITY: 1 day PAIN SCALE: 5/10 LOCATION: Bilateral frontal TECHNIQUE: Multiple contiguous axial images were obtained of the head. Using automated exposure control and adj ustment of the mA and/or kV according to patient size, radiation dose was kept as low as reasonably a chievable to obtain optimal diagnostic quality images. DICOM format image data is available electro nically for review and comparison. FINDINGS: CEREBRUM: The ventricles are normal for age. No evidence of midline shift, mass lesion, hemorrhage or acute in farction. No extra-axial fluid collections are seen. POSTERIOR FOSSA: The cerebellum and brainstem are intact. The 4th ventricle is midline. The cerebellopontine angle i s unremarkable. EXTRACRANIAL: Significant ethmoid and sphenoid sinus disease is noted. The total swelling is identified in the sphe noid sinus. Several ethmoid air cells are opacified. The visualized portion of the orbits is intact. SKULL: The calvaria is intact. No evidence of skull fracture. CONCLUSION: 1. Normal CT of the brain. 2. Paranasal sinus disease with mucosal swelling and opacification involving the ethmoid and sphenoid sinuses. Alex Reaves MD on February 09, 2017 at 14:47 Board Certified Radiologist. This report was verified electronically.
[2017-02-09] MEDS ORDERED: DEXAMETHASONE SOD PHOS 20 MG/5 ML VIAL IV PUSH ONE (15:00)
[2017-02-09 15:20] LABS: AUTOMATED NEUTROPHIL # 6.7 TH/MM3 (1.8-7.7); BASOPHIL # 0.1 TH/MM3 (0-0.2); BASOPHIL % 0.6 % (0.0-2.0); EOSINOPHIL # 0.2 TH/MM3 (0-0.4); EOSINOPHIL % 1.5 % (0.0-4.0); HEMATOCRIT 45.5 % (35.0-46.0); HEMOGLOBIN 15.7 GM/DL (11.6-15.3); LYMPH % 26.5 % (9.0-44.0); LYMPHOCYTE # 2.8 TH/MM3 (1.0-4.8); MEAN CELL VOLUME 88.1 FL (80.0-100.0); MEAN CORPUSCULAR HEMOGLOBIN 30.5 PG (27.0-34.0); MEAN CORPUSCULAR HGB CONC 34.6 % (32.0-36.0); MEAN PLATELET VOLUME 8.5 FL (7.0-11.0); MONOCYTE # 0.8 TH/MM3 (0-0.9); NEUT % 63.4 % (16.0-70.0); PLATELET COUNT 296 TH/MM3 (150-450); RED BLOOD COUNT 5.16 MIL/MM3 (4.00-5.30); RED CELL DISTRIBUTION WIDTH 13.6 % (11.6-17.2); WHITE BLOOD COUNT 10.6 TH/MM3 (4.0-11.0)
[2017-02-09 15:28] LABS: PROTHROMBIN TIME - PATIENT 9.7 SEC (9.8-11.6)
[2017-02-09 15:40] LABS: ALT (GPT) 31 U/L (10-53); AST (GOT) 14 U/L (15-37); BICARBONATE 28.9 MEQ/L (21.0-32.0); BLOOD UREA NITROGEN 13 MG/DL (7-18); CALCIUM 9.3 MG/DL (8.5-10.1); CHLORIDE 104 MEQ/L (98-107); CREATININE 0.83 MG/DL (0.50-1.00); GLOMERULAR FILTRATION RATE 78 ML/MIN (>89); GLUCOSE,RANDOM 72 MG/DL (74-106); SODIUM (NA) 139 MEQ/L (136-145)
[2017-02-09 15:42] LABS: ALKALINE PHOSPHATASE 126 U/L (45-117); TOTAL BILIRUBIN ADULT 0.3 MG/DL (0.2-1.0); TOTAL PROTEIN 7.8 GM/DL (6.4-8.2)
[2017-02-09 16:21] LABS: BILIRUBIN, URINE NEG (NEG); BLOOD, URINE NEG (NEG); GLUCOSE,URINE NEG (NEG); KETONE, URINE NEG (NEG); MUCUS URINE FEW /lpf (OCC); NITRITE,URINE NEG (NEG); SQUAMOUS EPITHELIAL CELL URINE 8 /hpf (0-5); URINE COLOR YELLOW (YELLW/STRAW); URINE LEUKOCYTE ESTERASE NEG (NEG)
[2017-02-09] MEDS ORDERED: ACETAMINOPHEN 325 MG TAB PO ONE (16:45)
--- NOTE | 2017-02-09 17:57 | PD.RAD ---
Post Procedure Progress Note Pre Procedure Diagnosis: (1) Headache (2) Nausea (3) History of bacterial meningitis Post Procedure Diagnosis: (1) History of bacterial meningitis (2) Nausea (3) Headache Procedure Date: Feb 09, 2017 Supervising Radiologist: Stephan Dorado Proceduralist/Assist: Anyi Benavides, RT(R)(), Althea Hernandez RT(R) Anesthesia: Local Plan of Activity Patient to Unit: Other (ED) Patient Condition: Good See PACS Report for procedural detail/treatment Spinal Procedure Lumbar Puncture L3-L4 Fluid Removal (CCs): 16 Fluid Description: Clear Puncture Time: 17:39 Stephan Dorado MD Feb 09, 2017 17:57
[2017-02-09 18:04] VITALS: BP 120/59; PULSE 92; RESP 18; O2SAT 100
[2017-02-09 18:47] LABS: TOTAL PROTEIN,CSF 38.4 MG/DL (15.0-45.0)
[2017-02-09 19:04] LABS: RBC TUBE #2 0 /MM3; SUPERNATE COLOR TUBE #1 CLEAR (CLEAR); WBC TUBE #2 3 /MM3 (0-10)
[2017-02-09 19:05] LABS: CSF LYMPHOCYTES 96 %; CSF MONOCYTES 4 %; CSF NEUTROPHILS 0 %
[2017-02-09] MEDS ORDERED: AUGM875T3 PO (19:50)
--- NOTE | 2017-02-10 10:15 | RADRPT ---
EXAM DATE/TIME: 02/09/2017 18:37 [facility] COMPARISON: No previous studies available for comparison. INDICATIONS : Patient with history of meningitis in need of lumbar puncture to rule out meningitis. MEDICAL HISTORY : Meningitis, Asthma, Cervical cancer, Radiation and chemotherapy CVA, HTN, Left ovary cyst, MRSA, Migr steafn SURGICAL HISTORY : Cholecystectomy, Hysterectomy, Bilateral lumpectomy with breast reduction ENCOUNTER: Initial ACUITY: 1 day PAIN SCORE: 6/10 LOCATION: Head and Neck LUMBAR PUNCTURE TIME: 1739 hours FLUORO TIME: 1.9 minutes IMAGE SERIES: 1 ACCESS LEVEL: L3-4 FLUID: 16 cc of clear CSF was collected and sent to the laboratory for analysis. PROCEDURE : 1. Fluoroscopic guided lumbar puncture. The risks, benefits and alternatives to the procedure were explained and verbal and written consent w as obtained. The site was prepped in sterile fashion. Full sterile technique was used, including ca p, mask, sterile gloves and gown and a large sterile sheet. Hand hygiene and 2% chlorhexidine and/or betadine/alcohol prep was utilized per protocol for cutaneous antisepsis. The skin and subcutaneous tissues were infiltrated with local anesthetic solution. With fluoroscopic guidance the lumbar thecal sac was punctured at the level above. The fluid describ ed above was removed without difficulty. The patient tolerated the procedure well and there were no complications. CONCLUSION: Uncomplicated fluoroscopically guided lumbar puncture. Stephan Dorado MD on February 10, 2017 at 10:13 Board Certified Radiologist. This report was verified electronically.
== END 2017-02-09 20:29 | disposition home or self-care (01) ==
LOC: NEPD 13:55
DX: J32.1 Chronic frontal sinusitis (principal); F17.200 Nicotine dependence, unspecified, uncomplicated
CPT/HCPCS: 62270; 70450; 77003; 80053; 81001; 82945; 84157; 85025; 85610; 85730; 87040; 87070; 87205; 87804; 89051; 96365; 96366; 96368; 96375; 99285; J0696; J1100; J3370; J7030; J7040; 86403

== ENCOUNTER 2017-02-28 23:02 | Emergency (ER) | payer OTHER ==
[~2017-02-28] VITALS: Ht 170.2 cm; Wt 133.6 kg
[~2017-02-28 23:02] MED LIST changes: +AUGM875T3 PO; -CIPR500T2 PO; -CYCL-36 PO; -DARV PO; -DIFL500T PO; -DILA2TAB4 PO; -METH750T2 PO
[2017-02-28 23:08] VITALS: BP 143/92; PULSE 109; RESP 22; TEMP 98.5; O2SAT 99
[2017-02-28 23:24] VITALS: BP 143/92; PULSE 109; RESP 16; TEMP 98.5; O2SAT 99
[2017-02-28] MEDS ORDERED: HYDROmorphone HCL PF 2 MG/ML VIAL IV PUSH ONE (23:30)
[2017-02-28] MEDS ORDERED: SODIUM CHLORIDE 0.9% FLUSH 10 ML FLUSH IV FLUSH PRN (23:30)
[2017-02-28] MEDS ORDERED: ONDANSETRON HCL 4 MG/2 ML VIAL IVP ONE (23:30)
--- NOTE | 2017-02-28 23:32 | PD ---
HPI Chief Complaint: Abdominal Pain Time Seen by Provider: 23:21 Travel History International Travel<30 days: No Contact w/Intl Traveler<30days: No Traveled to known affect area: No History of Present Illness HPI 37 year old female here for evaluation of right-sided abdominal pain and bright red blood per rectum. The patient presented to the emergency department last month for similar symptoms and reports frustration with diagnosis of abdominal pain of unknown etiology. States that for the last 3 days she has had bright red blood per rectum, and abdominal pain started yesterday evening. She reports severe right-sided abdominal pain described as sharp, constant, worse with movements. She denies fevers or chills. No nausea or vomiting. She reports having diarrhea for the last 4 years. History of breast cancer and cervical cancer with history of hysterectomy and cholecystectomy. No rectal pain. No vaginal bleeding or discharge. No urinary symptoms. PFSH Past Medical History Asthma: Yes Cancer: Yes (breast lumpectomy bilat 1995, cervical cancer ) Cardiovascular Problems: Yes (HTN) Chemotherapy: Yes Cerebrovascular Accident: Yes Diminished Hearing: No Hypertension: Yes Neurologic: Yes (MENINGITIS) Reproductive: Yes (CYST LT OVARY) Integumentary: Yes (MRSA LT ANKLE 10/04) Migraines: Yes Radiation Therapy: Yes Tetanus Vaccination: Unknown Influenza Vaccination: No ?: Not : 6 Para: 4 Miscarriage: 5 : 0 Ovarian Cysts: Yes (left ovary) Tubal Ligation: Yes (2002) Past Surgical History Cholecystectomy: Yes Hysterectomy: Yes Tonsillectomy: Yes ( WITH ADENOIDS REMOVED) Other Surgery: Yes (BILAT LUMPECTOMY WITH BREAST REDUCTION, BILAT CARPEL TUNNEL ) Social History Alcohol Use: No Tobacco Use: Yes (1PPD) Substance Use: No Allergies-Medications (Allergen,Severity, Reaction): Coded Allergies: morphine (Verified Allergy, Severe, LOCAL HIVES, 02/09/17) tramadol (Verified Allergy, Severe, VOMITING/ SEIZURE, 02/09/17) codeine (Verified Allergy, Mild, DEEP SLEEP, 02/09/17) ketorolac (Verified Allergy, Mild, VOMITING, 02/09/17) Reported Meds & Prescriptions Reported Meds & Active Scripts Active Augmentin (Amoxicillin-Clavulanate) 875-125 Mg Tab 1 Tab PO BID 10 Days Ranitidine (Ranitidine HCl) 150 Mg Tab 150 Mg PO BID Phenergan (Promethazine HCl) 25 Mg Tablet 25 Mg PO Q6H PRN Prilosec (Omeprazole Magnesium) 20 Mg Tab 20 Mg PO DAILY Ibuprofen 800 Mg Tab 800 Mg PO Q8H PRN Flexeril (Cyclobenzaprine HCl) 10 Mg Tab 10 Mg PO TID Review of Systems Except as stated in HPI: all other systems reviewed are Neg Physical Exam Narrative GENERAL: Well-developed, well-nourished, overweight, no apparent distress. SKIN: Focused skin assessment warm/dry. HEAD: Atraumatic. Normocephalic. EYES: Pupils equal and round. No scleral icterus. No injection or drainage. ENT: No nasal bleeding or discharge. Mucous membranes pink and moist. NECK: Trachea midline. No JVD. CARDIOVASCULAR: Regular rate and rhythm. No murmur appreciated. RESPIRATORY: No accessory muscle use. Clear to auscultation. Breath sounds equal bilaterally. GASTROINTESTINAL: Abdomen soft, nondistended. Moderate right mid and right upper quadrant tenderness without peritoneal signs. Rest of abdomen is mildly tender. No hernias. Normal bowel sounds. RECTUM: No masses, no fissures, no hemorrhoids, heme-negative brown stool. MUSCULOSKELETAL: No obvious deformities. No clubbing. No cyanosis. No edema. NEUROLOGICAL: Awake and alert. No obvious cranial nerve deficits. Motor grossly within normal limits. Normal speech. PSYCHIATRIC: Appropriate mood and affect; insight and judgment normal. Data Data Last Documented VS Vital Signs Date Time Temp Pulse Resp B/P (MAP) Pulse Ox O2 Delivery O2 Flow Rate FiO2 02/28/17 23:45 97 16 132/81 (98) 97 Room Air 02/28/17 23:24 98.5 Orders Orders Urinalysis - C+S If Indicated (02/28/17 23:15) Ed Urine Pregnancytest Poc (02/28/17 23:15) Complete Blood Count With Diff (02/28/17 23:21) Comprehensive Metabolic Panel (02/28/17 23:21) Prothrombin Time / Inr (Pt) (02/28/17 23:21) Act Partial Throm Time (Ptt) (02/28/17 23:21) Iv Access Insert/Monitor (02/28/17 23:21) Ecg Monitoring (02/28/17 23:21) Oximetry (02/28/17 23:21) Ondansetron Inj (Zofran Inj) (02/28/17 23:30) Sodium Chloride 0.9% Flush (Ns Flush) (02/28/17 23:30) Hydromorphone Pf Inj (Dilaudid Pf Inj) (02/28/17 23:30) Ct Abd/Pel W Iv Contrast(Rout) (03/01/17 00:14) Iohexol 350 Inj (Omnipaque 350 Inj) (03/01/17 00:38) Labs Laboratory Tests Test 02/28/17 23:30 White Blood Count 12.9 TH/MM3 Red Blood Count 4.99 MIL/MM3 Hemoglobin 14.2 GM/DL Hematocrit 43.5 % Mean Corpuscular Volume 87.2 FL Mean Corpuscular Hemoglobin 28.5 PG Mean Corpuscular Hemoglobin Concent 32.6 % Red Cell Distribution Width 12.6 % Platelet Count 295 TH/MM3 Mean Platelet Volume 8.7 FL Neutrophils (%) (Auto) 72.5 % Lymphocytes (%) (Auto) 22.2 % Monocytes (%) (Auto) 3.3 % Eosinophils (%) (Auto) 1.5 % Basophils (%) (Auto) 0.5 % Neutrophils # (Auto) 9.3 TH/MM3 Lymphocytes # (Auto) 2.9 TH/MM3 Monocytes # (Auto) 0.4 TH/MM3 Eosinophils # (Auto) 0.2 TH/MM3 Basophils # (Auto) 0.1 TH/MM3 CBC Comment AUTO DIFF Differential Comment AUTO DIFF CONFIRMED Platelet Estimate NORMAL Platelet Morphology Comment NORMAL Red Cell Morphology Comment NORMAL Prothrombin Time 9.9 SEC Prothromb Time International Ratio 1.0 RATIO Activated Partial Thromboplast Time 21.9 SEC Urine Color YELLOW Urine Turbidity SLIGHT Urine pH 6.[address] [place] 1.023 Urine Protein NEG mg/dL Urine Glucose (UA) NEG mg/dL Urine Ketones NEG mg/dL Urine Occult Blood MOD Urine Nitrite NEG Urine Bilirubin NEG Urine Leukocyte Esterase NEG Urine RBC 4-9 /hpf Urine Squamous Epithelial Cells 6-8 /hpf Urine Bacteria OCC /hpf Urine Mucus MOD /lpf Microscopic Urinalysis Comment CULT NOT INDICATED Blood Urea Nitrogen 14 MG/DL Creatinine 0.74 MG/DL Random Glucose 87 MG/DL Total Protein 7.6 GM/DL Albumin 3.8 GM/DL Calcium Level 9.5 MG/DL Alkaline Phosphatase 141 U/L Aspartate Amino Transf (AST/SGOT) 25 U/L Alanine Aminotransferase (ALT/SGPT) 37 U/L Total Bilirubin 0.2 MG/DL Sodium Level 138 MEQ/L Potassium Level 3.7 MEQ/L Chloride Level 104 MEQ/L Carbon Dioxide Level 25.4 MEQ/L Estimat Glomerular Filtration Rate 89 ML/MIN [facility] Medical Decision Making Medical Screen Exam Complete: Yes Emergency Medical Condition: Yes Medical Record Reviewed: Yes Differential Diagnosis Colitis, diverticulitis, appendicitis, ovarian cyst, ovarian torsion, UTI, cystitis, nephrolithiasis, adhesions Narrative Course Vital signs reviewed. CBC: WBC 12.9, hemoglobin 14.2, hematocrit 43.5, platelets 295, neutrophils 72.5 %. CMP is unremarkable. UA shows moderate occult blood, 4-9 RBCs, 6-8 squamous epithelial cells, occasional bacteria, moderate mucous, culture not indicated. Stool is heme negative and brown. CT abdomen pelvis: No acute disease. The patient was given IV Dilaudid and currently rates her pain as 7 out of 10. There are no peritoneal signs on exam. Her stool is heme negative and brown. Hemoglobin is 14.2. I will give the patient another dose of Dilaudid and will discharge her home with some pain medication. She has an appointment with a family doctor in one month. I will also give her the name of the tester waste disposal leakage with whom to follow-up with a stress the importance of follow -up for colonoscopy to evaluate for any polyps or cancer. She was advised on when to return to the emergency department. She verbalizes understanding and agreement with plan. [facility] Point of Care Internal Pos. & Neg. Controls: Passed Fecal Specimen Occult Blood: Negative Comment Heme-negative brown stool. Diagnosis Primary Impression: Abdominal pain Qualified Codes: R10.9 - Unspecified abdominal pain Referrals: Georgiana Bowers MD 3 days Assistant Associate Professor Additional Instructions: Follow-up with a primary care physician this week. Follow-up with tester waste disposal leakage Dr. Bowers or a tester waste disposal leakage of your choice this week. Return to the emergency department for worsening symptoms or any other concerns. Scripts Oxycodone-Acetaminophen (Percocet) 5-325 mg Tab 1 TAB PO Q6H Y for PAIN, #15 TAB 0 Refills Prov: Feliciano Gaston MD 03/01/17 Disposition: 01 DISCHARGE HOME Condition: Stable Feliciano Gaston MD Feb 28, 2017 23:32
[2017-02-28 23:43] VITALS: BP 132/81; PULSE 97; RESP 16; O2SAT 97
[2017-02-28 23:45] VITALS: BP 132/81; PULSE 97; RESP 16; O2SAT 97
[2017-02-28 23:50] LABS: AUTOMATED NEUTROPHIL # 9.3 TH/MM3 (1.8-7.7); BASOPHIL # 0.1 TH/MM3 (0-0.2); BASOPHIL % 0.5 % (0.0-2.0); EOSINOPHIL # 0.2 TH/MM3 (0-0.4); EOSINOPHIL % 1.5 % (0.0-4.0); HEMATOCRIT 43.5 % (35.0-46.0); HEMOGLOBIN 14.2 GM/DL (11.6-15.3); LYMPH % 22.2 % (9.0-44.0); LYMPHOCYTE # 2.9 TH/MM3 (1.0-4.8); MEAN CELL VOLUME 87.2 FL (80.0-100.0); MEAN CORPUSCULAR HEMOGLOBIN 28.5 PG (27.0-34.0); MEAN CORPUSCULAR HGB CONC 32.6 % (32.0-36.0); MEAN PLATELET VOLUME 8.7 FL (7.0-11.0); MONO % 3.3 % (0.0-8.0); MONOCYTE # 0.4 TH/MM3 (0-0.9); NEUT % 72.5 % (16.0-70.0); PLATELET COUNT 295 TH/MM3 (150-450); RED BLOOD COUNT 4.99 MIL/MM3 (4.00-5.30); RED CELL DISTRIBUTION WIDTH 12.6 % (11.6-17.2); WHITE BLOOD COUNT 12.9 TH/MM3 (4.0-11.0)
[2017-02-28 23:51] LABS: BILIRUBIN, URINE NEG (NEG); BLOOD, URINE MOD (NEG); GLUCOSE,URINE NEG (NEG); KETONE, URINE NEG (NEG); NITRITE,URINE NEG (NEG); URINE LEUKOCYTE ESTERASE NEG (NEG)
[2017-02-28 23:59] LABS: CHLORIDE 104 MEQ/L (98-107); SODIUM (NA) 138 MEQ/L (136-145)
[2017-03-01 00:01] LABS: CALCIUM 9.5 MG/DL (8.5-10.1); MUCUS URINE MOD /lpf (OCC); URINE COLOR YELLOW (YELLW/STRAW)
[2017-03-01 00:02] LABS: ALBUMIN 3.8 GM/DL (3.4-5.0); BACTERIA, URINE OCC /hpf; BICARBONATE 25.4 MEQ/L (21.0-32.0); BLOOD UREA NITROGEN 14 MG/DL (7-18); GLUCOSE,RANDOM 87 MG/DL (74-106)
[2017-03-01 00:04] LABS: PROTHROMBIN TIME - PATIENT 9.9 SEC (9.8-11.6)
[2017-03-01 00:05] LABS: ALT (GPT) 37 U/L (10-53); AST (GOT) 25 U/L (15-37); CREATININE 0.74 MG/DL (0.50-1.00); GLOMERULAR FILTRATION RATE 89 ML/MIN (>89)
[2017-03-01 00:07] LABS: TOTAL BILIRUBIN ADULT 0.2 MG/DL (0.2-1.0); TOTAL PROTEIN 7.6 GM/DL (6.4-8.2)
[2017-03-01 00:08] LABS: ALKALINE PHOSPHATASE 141 U/L (45-117)
[2017-03-01] MEDS ORDERED: IOHEXOL 350 MG/ML 10 ML VIAL (for RAD DIAG) IVCONTRAST ONE (00:38)
--- NOTE | 2017-03-01 00:47 | RADRPT ---
EXAM DATE/TIME: 03/01/2017 00:21 [facility] COMPARISON: CT ABDOMEN & PELVIS W CONTRAST, January 04, 2017, 21:14. INDICATIONS : Abdominal pain. Rectal bleeding. IV CONTRAST: 100 cc Omnipaque 350 (iohexol) IV ORAL CONTRAST: No oral contrast ingested. RADIATION DOSE: 22.36 CTDIvol (mGy) MEDICAL HISTORY : Hypertension. SURGICAL HISTORY : Cholecystectomy. Hysterectomy. ENCOUNTER: Initial ACUITY: 4 - 6 days PAIN SCALE: 9/10 LOCATION: Bilateral lower quadrant TECHNIQUE: Volumetric scanning of the abdomen and pelvis was performed. Using automated exposure control and ad justment of the mA and/or kV according to patient size, radiation dose was kept as low as reasonably achievable to obtain optimal diagnostic quality images. DICOM format image data is available electro nically for review and comparison. FINDINGS: LOWER LUNGS: The visualized lower lungs are clear. LIVER: Homogeneous density without lesion. There is no dilation of the biliary tree. Gallbladder is surgica lly absent. SPLEEN: Normal size without lesion. PANCREAS: Within normal limits. KIDNEYS: Normal in size and shape. There is no mass, stone or hydronephrosis. ADRENAL GLANDS: Within normal limits. VASCULAR: There is no aortic aneurysm. BOWEL/MESENTERY: The stomach, small bowel, and colon demonstrate no acute abnormality. There is no free intraperitone al air or fluid. ABDOMINAL WALL: Within normal limits. RETROPERITONEUM: There is no lymphadenopathy. BLADDER: No wall thickening or mass. REPRODUCTIVE: Within normal limits. INGUINAL: There is no lymphadenopathy or hernia. MUSCULOSKELETAL: Within normal limits for patient age. CONCLUSION: No acute disease. Yovani English Jr., MD on March 01, 2017 at 0:43 Board Certified Radiologist. This report was verified electronically.
[2017-03-01] MEDS ORDERED: PERC5TAB12 PO (00:59)
[2017-03-01] MEDS ORDERED: HYDROmorphone HCL PF 2 MG/ML VIAL IV PUSH ONE (01:00)
[2017-03-01 01:11] VITALS: BP 128/90
[2017-03-18] MEDS ORDERED: IBUP1TAB7 PO (16:16)
== END 2017-03-01 01:40 | disposition home or self-care (01) ==
LOC: PHED 23:02
DX: R10.9 Unspecified abdominal pain (principal); K62.5 Hemorrhage of anus and rectum; I10 Essential (primary) hypertension; J45.909 Unspecified asthma, uncomplicated; N83.209 Unspecified ovarian cyst, unspecified side; F17.210 Nicotine dependence, cigarettes, uncomplicated; Z85.3 Personal history of malignant neoplasm of breast; Z85.41 Personal history of malignant neoplasm of cervix uteri; Z86.73 Personal history of transient ischemic attack (TIA), and cerebral infarction without residual deficits; Z88.5 Allergy status to narcotic agent; Z90.49 Acquired absence of other specified parts of digestive tract; Z90.710 Acquired absence of both cervix and uterus; Z79.899 Other long term (current) drug therapy
CPT/HCPCS: 74177; 80053; 81001; 84703; 85025; 85610; 85730; 96374; 96375; 96376; 99285; J1170; J2405; Q9967

== ENCOUNTER 2017-03-08 18:25 | Emergency (ER) | payer OTHER ==
[~2017-03-08 18:25] MED LIST changes: +PERC5TAB12 PO
[2017-03-18] MEDS ORDERED: IBUP1TAB7 PO (16:16)
== END 2017-03-08 19:20 | disposition left against medical advice (07) ==
LOC: PHED 18:25
DX: R05 Cough (principal)
CPT/HCPCS: 99281

== ENCOUNTER 2017-03-14 22:28 | Emergency (ER) | payer OTHER ==
[~2017-03-14] VITALS: Ht 170.2 cm; Wt 135.0 kg
[2017-03-14 22:30] VITALS: BP 134/79; PULSE 103; RESP 18; TEMP 97.4
[2017-03-14] MEDS ORDERED: predniSONE 50 MG TAB PO ONE (22:45)
[2017-03-14] MEDS ORDERED: RESP: ALBUTEROL 2.5 MG/IPRATROPIUM 0.5 MG NEB (SCH) NEB ONE (22:45)
[2017-03-14] MEDS ORDERED: RESP: LIDOCAINE HCL 4% PF 5 ML NEB NEB ONE (22:45)
[2017-03-14] MEDS ORDERED: VENTAER INH ×2 (22:45→23:50)
--- NOTE | 2017-03-14 22:47 | PD ---
HPI Chief Complaint: Pain: Acute or Chronic Time Seen by Provider: 22:37 Travel History International Travel<30 days: No Contact w/Intl Traveler<30days: No Traveled to known affect area: No History of Present Illness HPI The patient is a 37-year-old female who presents emergency Department with multiple complaints. The patient is a 1 month history of productive cough producing green sputum. The patient states she was treated with amoxicillin 3 weeks ago for her cough, continues to have a productive cough with green sputum. She does have a history of tobacco use, last cigarette was just prior to arrival. She does complain of wheezing, denies any outright chest pain or shortness of breath. She also complains of right knee pain over the last 4 days , the pain is better with standing, worse with bending, and radiates from the anterior to lateral aspect of the right knee to the posterior aspect of the right leg. She does have a history of similar pain in the left leg and states she had a DVT several years ago, was on anticoagulation for 6 months. She denies any significant swelling of the right lower extremity. Pain is worse with flexion of the right knee, improved with standing, and moderate in intensity. The patient recently moved back from [place] to the local area in December and does not have a local primary physician. PFSH Past Medical History Asthma: Yes Cancer: Yes (breast lumpectomy bilat 1995, cervical cancer ) Cardiovascular Problems: Yes (htn) Chemotherapy: Yes Cerebrovascular Accident: Yes Diminished Hearing: No Hypertension: Yes Neurologic: Yes (MENINGITIS) Reproductive: Yes (CYST LT OVARY) Integumentary: Yes (MRSA LT ANKLE 10/04) Migraines: Yes Radiation Therapy: Yes ?: Not : 6 Para: 4 Miscarriage: 5 : 0 Ovarian Cysts: Yes (left ovary) Tubal Ligation: Yes (2002) Past Surgical History Cholecystectomy: Yes Hysterectomy: Yes Tonsillectomy: Yes ( WITH ADENOIDS REMOVED) Other Surgery: Yes (BILAT LUMPECTOMY WITH BREAST REDUCTION, BILAT CARPEL TUNNEL ) Social History Alcohol Use: No Tobacco Use: Yes (1PPD) Substance Use: No Allergies-Medications (Allergen,Severity, Reaction): Coded Allergies: morphine (Verified Allergy, Severe, LOCAL HIVES, 03/14/17) tramadol (Verified Allergy, Severe, VOMITING/ SEIZURE, 03/14/17) codeine (Verified Allergy, Mild, DEEP SLEEP, 03/14/17) ketorolac (Verified Allergy, Mild, VOMITING, 03/14/17) Reported Meds & Prescriptions Reported Meds & Active Scripts Active Percocet (Oxycodone-Acetaminophen) 5-325 mg Tab 1 Tab PO Q6H PRN Ranitidine (Ranitidine HCl) 150 Mg Tab 150 Mg PO BID Ibuprofen 800 Mg Tab 800 Mg PO Q8H PRN Reported Ventolin Hfa 18 GM Inh (Albuterol Sulfate) 90 Mcg/Act Aer 2 Puff INH Q4-6H PRN Review of Systems Except as stated in HPI: all other systems reviewed are Neg General / Constitutional: No: Fever Cardiovascular: No: Chest Pain or Discomfort Respiratory: Positive: Cough, Wheezing, No: Shortness of Breath Musculoskeletal: Positive: Edema, Pain, No: Weakness Neurologic: No: Paresthesia, Sensory Disturbance Physical Exam Narrative GENERAL: Awake, alert, nontoxic-appearing 37 year-old female who appears her stated age is in no acute respiratory distress. Morbidly obese. SKIN: Focused skin assessment warm/dry. HEAD: Atraumatic. Normocephalic. EYES: Pupils equal and round. No scleral icterus. No injection or drainage. ENT: No nasal bleeding or discharge. Mucous membranes pink and moist. NECK: Trachea midline. No JVD. CARDIOVASCULAR: Regular rate and rhythm. No murmur appreciated. RESPIRATORY: No accessory muscle use. Few scattered wheezes. MUSCULOSKELETAL: No obvious deformities. Tenderness over the popliteal fossa lateral aspect of the right leg. The patient is able to flex the hip and knee to 90. Positive dorsalis pedal pulses bilateral. Superficial varicosities noted of the lower extremities bilaterally. Pain was elicited with palpation of lateral aspect and posterior aspect of the right knee, worse with flexion and internal rotation, slightly improved with external rotation. NEUROLOGICAL: Awake and alert. No obvious cranial nerve deficits. Motor grossly within normal limits. Normal speech. PSYCHIATRIC: Appropriate mood and affect; insight and judgment normal. Data Data Last Documented VS Vital Signs Date Time Temp Pulse Resp B/P (MAP) Pulse Ox O2 Delivery O2 Flow Rate FiO2 03/14/17 22:40 18 03/14/17 22:30 97.4 103 134/79 (97) Orders Orders Us Leg Venous Doppler (03/14/17 ) Prednisone (Deltasone) (03/14/17 22:45) Albuterol-Ipratropium Neb (Duoneb Neb) (03/14/17 22:45) Lidocaine Pf 4% Neb (Lidocaine Pf 4% Neb (03/14/17 22:45) MDM Medical Decision Making Medical Screen Exam Complete: Yes Emergency Medical Condition: Yes Medical Record Reviewed: Yes Interpretation(s) Ultrasound of the right leg reveals no DVT Differential Diagnosis Differential diagnosis includes bronchitis, congestive heart failure, pneumonia , postnasal drip, tobacco use, DVT, meniscal injury, foreign body right knee, ligament injury, sprain, strain, fracture. Narrative Course The patient was administered prednisone 50 mg orally and duo neb 1 with respiratory lidocaine. Ultrasound of the right lower extremity was ordered to rule out DVT. Ultrasound is negative for DVT. The patient most likely has ligament and/or meniscal injury. She is advised to use a knee brace as needed, activity as tolerated, to follow-up with a primary physician and/or orthopedist. Patient was previously treated for bronchitis with amoxicillin but no steroids or inhaler, I will place her on prednisone and an inhaler. She is advised to stop smoking. Return if symptoms worsen or progress. Diagnosis Primary Impression: Bronchitis Additional Impression: Right knee pain Qualified Codes: M25.561 - Pain in right knee Patient Instructions: General Instructions Additional Instructions: Please provide the patient a copy of her ultrasound results at discharge. Steroids as directed, pain medication as directed. Activity as tolerated. Follow-up with a primary physician and/or orthopedist. Med/Other Pt SpecificInfo: Prescription(s) given Scripts Hydrocodone-Acetaminophen ([place]) 5 Mg-325 Mg Tab 1 TAB PO Q6H Y for PAIN, #10 TAB 0 Refills Prov: Joe Arzola MD 03/14/17 Prednisone (Prednisone) 20 Mg Tab 40 MG PO DAILY for 4 Days, #8 TAB 0 Refills Prov: Joe Arzola MD 03/14/17 Disposition: 01 DISCHARGE HOME Condition: Stable Joe Arzola MD Mar 14, 2017 22:47
--- NOTE | 2017-03-14 23:43 | RADRPT ---
EXAM DATE/TIME: 03/14/2017 23:26 [facility] COMPARISON: No previous studies available for comparison. INDICATIONS : Right leg pain. MEDICAL HISTORY : Stroke. Carcinoma, breast. Asthma. Ovarian cysts. Diabetes. Chemotherapy. Radiation therapy. SURGICAL HISTORY : Tonsillectomy. Cholecystectomy. Hysterectomy. Adenoidectomy. Left knee surgery. Biltaeral lumpectomy . Breast reduction. Bilateral carpal tunnel. ENCOUNTER: Initial ACUITY: 1 week PAIN SCORE: 8/10 LOCATION: Right leg. TECHNIQUE: Venous ultrasound of the leg was performed from the inguinal ligament to the proximal calf. Real-kartik e, color Doppler and spectral tracing, compression and augmentation techniques were used. FINDINGS: There is normal compressibility of the deep venous system from the inguinal region to the proximal ca lf. No echogenic clot is seen in the lumen of the common femoral, femoral, popliteal, and posterior tibial veins. There is a normal response of the venous system to proximal and distal augmentation an d respiration. CONCLUSION: No DVT. Fernando Espinal MD on March 14, 2017 at 23:41 Board Certified Radiologist. This report was verified electronically.
[2017-03-14] MEDS ORDERED: PRED20 PO (23:47)
[2017-03-14] MEDS ORDERED: NORC5TAB PO (23:47)
[2017-03-15 00:06] VITALS: BP 136/78
[2017-03-18] MEDS ORDERED: IBUP1TAB7 PO (16:16)
== END 2017-03-15 00:07 | disposition home or self-care (01) ==
LOC: PHED 22:28
DX: M25.561 Pain in right knee (principal); J45.909 Unspecified asthma, uncomplicated; I10 Essential (primary) hypertension; F17.210 Nicotine dependence, cigarettes, uncomplicated; Z86.73 Personal history of transient ischemic attack (TIA), and cerebral infarction without residual deficits; Z85.3 Personal history of malignant neoplasm of breast; Z85.41 Personal history of malignant neoplasm of cervix uteri
CPT/HCPCS: 93971; 94664; 99284; J7512

== ENCOUNTER 2017-03-18 15:35 | Emergency (ER) | payer OTHER | END 2017-03-18 16:29 | disposition home or self-care (01) | LOC: PHEFT 15:35 | DX: M25.561 Pain in right knee (principal); J45.909 Unspecified asthma, uncomplicated; F17.210 Nicotine dependence, cigarettes, uncomplicated; I10 Essential (primary) hypertension; Z86.73 Personal history of transient ischemic attack (TIA), and cerebral infarction without residual deficits; Z85.41 Personal history of malignant neoplasm of cervix uteri; Z85.3 Personal history of malignant neoplasm of breast | CPT/HCPCS: 99283 ==

== ENCOUNTER 2017-05-19 00:19 | Emergency (ER) | payer OTHER ==
[~2017-05-19] VITALS: Ht 170.2 cm; Wt 138.0 kg
[~2017-05-19 00:19] MED LIST changes: -AUGM875T3 PO; -CYCL10TA PO; -PERC5TAB12 PO; -PRIL20TA2 PO; -PROM25TA10 PO; +VENTAER INH
[2017-05-19 00:32] VITALS: BP 134/85; PULSE 100; RESP 18; TEMP 98.1; O2SAT 99
[2017-05-19] MEDS ORDERED: BENZ100 PO (10:52)
[2017-05-19] MEDS ORDERED: VENTAER INH (10:52)
[2017-05-19] MEDS ORDERED: AZIT500T2 PO (10:52)
[2017-05-19] MEDS ORDERED: PRED-503 PO ×2 (10:52→11:02)
== END 2017-05-19 02:36 | disposition left against medical advice (07) ==
LOC: PHED 00:19
DX: R05 Cough (principal); Z53.21 Procedure and treatment not carried out due to patient leaving prior to being seen by health care provider
CPT/HCPCS: 99281

== ENCOUNTER 2017-05-19 09:49 | Emergency (ER) | payer OTHER ==
[~2017-05-19] VITALS: Ht 170.2 cm; Wt 138.2 kg
[2017-05-19 09:54] VITALS: BP 157/79; PULSE 89; RESP 16; TEMP 97.9; O2SAT 99
--- NOTE | 2017-05-19 10:38 | PD ---
HPI Chief Complaint: Cold / Flu Symptoms Time Seen by Provider: 10:24 Travel History International Travel<30 days: No Contact w/Intl Traveler<30days: No Traveled to known affect area: No History of Present Illness HPI 37-year-old female presents to the emergency department with complaint of cough , runny nose, sore throat since yesterday. Reports history of asthma, COPD, emphysema. Reports tobacco use. Denies fever, vomiting. Denies ear pain. Reports wheezing. Has been using albuterol inhaler with good relief of symptoms but is now out of her inhaler. Reports "a little "chest tightness and shortness of breath. Denies chest pain. No one else with similar symptoms. Has also tried Benadryl for symptom management. Symptoms are mild in severity. No known aggravating factors. Primary care provider is [facility]. Allergies to codeine, Toradol, morphine, tramadol. History is of asthma, COPD, asthma. Has no other medical complaints. No other modifying factors or associated signs and symptoms. PFSH Past Medical History Asthma: Yes Cancer: Yes (breast lumpectomy bilat 1995, cervical cancer ) Cardiovascular Problems: Yes (htn) Chemotherapy: Yes Cerebrovascular Accident: Yes Diabetes: No (BORDERLINE) Diminished Hearing: No Hypertension: Yes Neurologic: Yes (MENINGITIS) Reproductive: Yes (CYST LT OVARY) Integumentary: Yes (MRSA LT ANKLE 10/04) Immunizations Current: Yes Migraines: Yes Radiation Therapy: Yes ?: Not : 6 Para: 4 Miscarriage: 5 : 0 Ovarian Cysts: Yes (left ovary) Tubal Ligation: Yes (2002) Past Surgical History Cholecystectomy: Yes Ear Surgery: Yes (TUBES PLACED BILAT) Hysterectomy: Yes Tonsillectomy: Yes ( WITH ADENOIDS REMOVED) Other Surgery: Yes (BILAT LUMPECTOMY WITH BREAST REDUCTION, BILAT CARPEL TUNNEL ) Social History Alcohol Use: No Tobacco Use: Yes (2 PPD) Substance Use: No Allergies-Medications (Allergen,Severity, Reaction): Coded Allergies: morphine (Verified Allergy, Severe, LOCAL HIVES, 05/19/17) tramadol (Verified Allergy, Severe, VOMITING/ SEIZURE, 05/19/17) codeine (Verified Allergy, Mild, DEEP SLEEP, 05/19/17) ketorolac (Verified Allergy, Mild, VOMITING, 05/19/17) Reported Meds & Prescriptions Reported Meds & Active Scripts Active Deltasone (Prednisone) 20 Mg Tab 40 Mg PO DAILY 4 Days start 05/20/2017 Tessalon Perles (Benzonatate) 100 Mg Cap 100 Mg PO TID PRN 3 Days Azithromycin 500 Mg Tab 500 Mg PO DAILY Ventolin Hfa 18 GM Inh (Albuterol Sulfate) 90 Mcg/Act Aer 2 Puff INH Q4-6H PRN Ventolin Hfa 18 GM Inh (Albuterol Sulfate) 90 Mcg/Act Aer 2 Puff INH Q4-6H PRN Review of Systems Except as stated in HPI: all other systems reviewed are Neg Physical Exam Narrative GENERAL: Well-nourished, well-developed female patient, in no acute distress; afebrile, nontoxic-appearing SKIN: Warm and moist. HEAD: Atraumatic. Normocephalic. EYES: Pupils equal and round. No scleral icterus. No injection or drainage. ENT: Mucosa pink and moist. No erythema or exudates. No uvular edema. No uvular , palatal, or tonsillar deviation. Airway patent. EARS: Bilateral pinnae and external canals appear within normal limits. Bilateral tympanic membranes without erythema, dullness or perforation. NECK: Trachea midline. No lymphadenopathy. CARDIOVASCULAR: Regular rate and rhythm. No murmur appreciated. RESPIRATORY: No accessory muscle use. Lungs sounds clear to auscultation and decreased in bilateral bases. Breath sounds equal bilaterally. No audible wheezing. No retractions or tachypnea. GASTROINTESTINAL: Obese. MUSCULOSKELETAL: No obvious deformities. No clubbing. No cyanosis. No edema. NEUROLOGICAL: Awake and alert. Oriented 3. No obvious cranial nerve deficits. Motor grossly within normal limits. Normal speech. Moves all extremities. 5/5 strength to all extremities. PSYCHIATRIC: Appropriate mood and affect; insight and judgment normal. Data Data Last Documented VS Vital Signs Date Time Temp Pulse Resp B/P (MAP) Pulse Ox O2 Delivery O2 Flow Rate FiO2 05/19/17 09:54 97.9 89 16 157/79 (105) 99 Orders Orders Prednisone (Deltasone) (05/19/17 11:00) Albuterol-Ipratropium Neb (Duoneb Neb) (05/19/17 11:00) Ed Discharge Order (05/19/17 11:22) [facility] Medical Decision Making Medical Screen Exam Complete: Yes Emergency Medical Condition: Yes Medical Record Reviewed: Yes Differential Diagnosis Viral illness, asthma exacerbation, COPD exacerbation, URI Narrative Course 37-year-old female with symptoms of viral illness and asthma/COPD/emphysema exacerbation. Patient is afebrile and nontoxic-appearing. Denies fever, vomiting. DuoNeb 1, Deltasone administered in the ER. 1122: Patient reports improvement after breathing treatment. She denies chest tightness or shortness of breath. Lungs are clear and equal throughout with improved breath sounds in lung bases. Azithromycin, Deltasone, Ventolin inhaler , Tessalon Perles prescribed for home. Instructed patient to follow up with primary care provider. Patient verbalizes understanding and agreement with treatment plan. Patient is medically cleared and stable for discharge. Discussed reasons to return to the emergency department. Patient agrees with treatment plan. The patients vital signs are stable and the patient is stable for outpatient follow-up and treatment. Patient discharged home, stable and in no acute distress. Diagnosis Primary Impression: Viral illness Additional Impression: Asthma exacerbation Qualified Codes: J45.901 - Unspecified asthma with (acute) exacerbation Referrals: [facility] Primary Care Physician Patient Instructions: Asthma (ED), COPD (Chronic Obstructive Pulmonary Disease ) (ED), Cold Symptoms (ED), General Instructions, Safe Use of Cough and Cold Medicines (ED) Departure Forms: Tests/Procedures, Work Release Enter return to work date: May 20, 2017 Additional Instructions: Use Albuterol inhaler as prescribed Take oral steroids as prescribed and complete full course Use Tessalon Perles as prescribed to decrease coughing spasms [id number] decongestants or antihistamines as directed and as needed for symptom management Your cough can last 4-6 weeks Drink plenty of fluids to prevent dehydration Use hot air humidifier to decrease cough exacerbation Turn off ceiling fans and sleep with head of bed elevated Avoid triggers such as second hand smoke, dust, known allergens Follow-up with your primary care provider Return to the emergency department immediately with worsening of symptoms Med/Other Pt SpecificInfo: Prescription(s) given Scripts Prednisone (Deltasone) 20 Mg Tab 40 MG PO DAILY for 4 Days, #8 TAB 0 Refills start 05/20/2017 Prov: Leah Maldonado EMERGENCY DEPARTMENT 05/19/17 Benzonatate (Tessalon Perles) 100 Mg Cap 100 MG PO TID Y for COUGH for 3 Days, CAP 0 Refills Prov: Leah Maldonado 05/19/17 Azithromycin (Azithromycin) 500 Mg Tab 500 MG PO DAILY for Infection, #5 TAB 0 Refills Prov: Leah Maldonado 05/19/17 Albuterol 18 GM Inh (Ventolin Hfa 18 GM Inh) 90 Mcg/Act Aer 2 PUFF INH Q4-6H Y for SOB/WHEEZING, #1 INHALER 0 Refills Prov: Leah Maldonado 05/19/17 Disposition: 01 DISCHARGE HOME Condition: Stable Leah Maldonado May 19, 2017 10:38
[2017-05-19] MEDS ORDERED: BENZ100 PO (10:52)
[2017-05-19] MEDS ORDERED: AZIT500T2 PO (10:52)
[2017-05-19] MEDS ORDERED: PRED-503 PO ×2 (10:52→11:02)
[2017-05-19] MEDS ORDERED: VENTAER INH (10:52)
[2017-05-19] MEDS ORDERED: predniSONE 20 MG TAB PO ONE (11:00)
[2017-05-19] MEDS ORDERED: RESP: ALBUTEROL 2.5 MG/IPRATROPIUM 0.5 MG NEB (SCH) INH ONE (11:00)
== END 2017-05-19 11:50 | disposition home or self-care (01) ==
LOC: PHED 09:49 → PHEFT 11:50
DX: B34.9 Viral infection, unspecified (principal); J45.901 Unspecified asthma with (acute) exacerbation; R07.0 Pain in throat; R09.89 Other specified symptoms and signs involving the circulatory and respiratory systems; I10 Essential (primary) hypertension; J44.9 Chronic obstructive pulmonary disease, unspecified; R73.03 Prediabetes; F17.200 Nicotine dependence, unspecified, uncomplicated; Z86.73 Personal history of transient ischemic attack (TIA), and cerebral infarction without residual deficits; Z86.69 Personal history of other diseases of the nervous system and sense organs; Z86.14 Personal history of Methicillin resistant Staphylococcus aureus infection; Z87.42 Personal history of other diseases of the female genital tract
CPT/HCPCS: 94664; 99283; J7512

== ENCOUNTER 2017-08-02 12:24 | Emergency (ER) | payer OTHER ==
[~2017-08-02] VITALS: Ht 170.2 cm; Wt 141.2 kg
[~2017-08-02 12:24] MED LIST changes: +AZIT500T2 PO; +BENZ100 PO; -IBUP1TAB7 PO; +PRED-503 PO; -RANI150T PO
[2017-08-02 12:29] VITALS: BP 134/65; PULSE 90; RESP 16; TEMP 98.2; O2SAT 99
[2017-08-02] MEDS ORDERED: SODIUM CHLOR 0.9% 1000 ML INJ 1,000 ML IV ONE (13:00)
[2017-08-02] MEDS ORDERED: SODIUM CHLORIDE 0.9% FLUSH 10 ML FLUSH IVF PRN (13:00)
[2017-08-02] MEDS ORDERED: PROCHLORPERAZINE INJ 10 MG/2 ML VIAL IV PUSH ONE (13:00)
[2017-08-02] MEDS ORDERED: diphenhydrAMINE HCL 50 MG/ML VIAL IV PUSH ONE (13:00)
[2017-08-02] MEDS ORDERED: ZOFR4TAB3 SL (13:03)
[2017-08-02] MEDS ORDERED: MECL1TAB42 PO (13:03)
--- NOTE | 2017-08-02 13:04 | PD ---
HPI . Dizziness Chief Complaint: Dizziness Time Seen by Provider: 12:40 Travel History International Travel<30 days: No Contact w/Intl Traveler<30days: No Traveled to known affect area: No History of Present Illness HPI This patient presents with about a 12 hour history of dizziness. She describes a spinning sensation which is associated with nausea and vomiting. She is also reporting diffuse myalgias. She rates the myalgias 5/10. Her dizziness is worse with sitting and better with lying. Her symptoms have been persistent for the last 12 hours. This patient has a history of previous breast and cervical cancer. She has completed treatment. She also reports a previous history of mastoiditis as well as a ruptured TM. [facility] Past Medical History Narrative Medical Breast and cervical cancer. Previous history of diabetes treated with metoprolol. She is not currently on treatment for either the cancer or the diabetes. Her cancer treatment has been completed and she has been told that she no longer needs an oral hypoglycemic. Asthma: Yes Cancer: Yes (breast lumpectomy bilat 1995, cervical cancer ) Cardiovascular Problems: Yes (htn) Chemotherapy: Yes Cerebrovascular Accident: Yes (tia 04/12/2013) Diabetes: No (BORDERLINE) Diminished Hearing: No Hypertension: Yes Neurologic: Yes (MENINGITIS) Reproductive: Yes (CYST LT OVARY) Integumentary: Yes Immunizations Current: Yes Migraines: Yes Radiation Therapy: Yes ?: Not : 6 Para: 4 Miscarriage: 5 : 0 Ovarian Cysts: Yes (left ovary) Tubal Ligation: Yes (2002) Past Surgical History Cholecystectomy: Yes Ear Surgery: Yes (TUBES PLACED BILAT) Hysterectomy: Yes Tonsillectomy: Yes ( WITH ADENOIDS REMOVED) Other Surgery: Yes (BILAT LUMPECTOMY WITH BREAST REDUCTION, BILAT CARPEL TUNNEL ) Social History Alcohol Use: No Tobacco Use: Yes (2 PPD) Substance Use: No Allergies-Medications (Allergen,Severity, Reaction): Coded Allergies: morphine (Verified Allergy, Severe, LOCAL HIVES, 08/02/17) tramadol (Verified Allergy, Severe, VOMITING/ SEIZURE, 08/02/17) codeine (Verified Allergy, Mild, DEEP SLEEP, 08/02/17) ketorolac (Verified Allergy, Mild, VOMITING, 08/02/17) Reported Meds & Prescriptions Reported Meds & Active Scripts Active Zofran Odt (Ondansetron Odt) 4 Mg Tab 4 Mg SL Q6HR PRN Meclizine 25 (Meclizine HCl) 25 Mg Tab 1 Tab PO Q6HR Ventolin Hfa 18 GM Inh (Albuterol Sulfate) 90 Mcg/Act Aer 2 Puff INH Q4-6H PRN Review of Systems Except as stated in HPI: all other systems reviewed are Neg Physical Exam Narrative GENERAL: Awake and alert and in no acute distress. SKIN: warm/dry. HEAD: Normocephalic. Atraumatic. EYES: Pupils equal and round. Extraocular movements are intact. ENT: Mucous membranes pink and moist. NECK: Supple. Full range of motion without pain.. CARDIOVASCULAR: Regular rate and rhythm. Heart sounds normal. RESPIRATORY: No accessory muscle use. Clear to auscultation. Breath sounds equal bilaterally. MUSCULOSKELETAL: No obvious deformities. Normal muscle tone. NEUROLOGICAL: Awake and alert. No obvious cranial nerve deficits. Motor grossly within normal limits. Normal speech. [id number]-dhwa-[id number] exam is intact. PSYCHIATRIC: Appropriate mood and affect; insight and judgment normal. Data Data Last Documented VS Vital Signs Date Time Temp Pulse Resp B/P (MAP) Pulse Ox O2 Delivery O2 Flow Rate FiO2 08/02/17 12:38 16 99 Room Air 08/02/17 12:29 98.2 90 134/65 (88) Orders Orders Basic Metabolic Panel (Bmp) (08/02/17 12:56) Complete Blood Count With Diff (08/02/17 12:56) Ct Brain W/O Iv Contrast(Rout) (08/02/17 12:56) Iv Access Insert/Monitor (08/02/17 12:56) Sodium Chloride 0.9% Flush (Ns Flush) (08/02/17 13:00) Diphenhydramine Inj (Benadryl Inj) (08/02/17 13:00) Prochlorperazine Inj (Compazine Inj) (08/02/17 13:00) Sodium Chlor 0.9% 1000 Ml Inj (Ns 1000 M (08/02/17 13:00) Labs Laboratory Tests Test 08/02/17 12:50 White Blood Count 10.0 TH/MM3 Red Blood Count 4.89 MIL/MM3 Hemoglobin 13.6 GM/DL Hematocrit 43.5 % Mean Corpuscular Volume 89.0 FL Mean Corpuscular Hemoglobin 27.9 PG Mean Corpuscular Hemoglobin Concent 31.4 % Red Cell Distribution Width 12.8 % Platelet Count 339 TH/MM3 Mean Platelet Volume 8.7 FL Neutrophils (%) (Auto) 58.8 % Lymphocytes (%) (Auto) 32.9 % Monocytes (%) (Auto) 5.1 % Eosinophils (%) (Auto) 2.4 % Basophils (%) (Auto) 0.8 % Neutrophils # (Auto) 5.9 TH/MM3 Lymphocytes # (Auto) 3.3 TH/MM3 Monocytes # (Auto) 0.5 TH/MM3 Eosinophils # (Auto) 0.2 TH/MM3 Basophils # (Auto) 0.1 TH/MM3 CBC Comment DIFF FINAL Differential Comment Blood Urea Nitrogen 16 MG/DL Creatinine 0.81 MG/DL Random Glucose 90 MG/DL Calcium Level 8.3 MG/DL Sodium Level 141 MEQ/L Potassium Level 3.5 MEQ/L Chloride Level 108 MEQ/L Carbon Dioxide Level 27.4 MEQ/L Anion Gap 6 MEQ/L Estimat Glomerular Filtration Rate 80 ML/MIN MDM Medical Decision Making Medical Screen Exam Complete: Yes Emergency Medical Condition: Yes Differential Diagnosis Differential diagnosis of dizziness includes but is not limited to vertigo, dehydration, acute blood loss, sepsis, ACS Narrative Course This patient presents with dizziness which she describes as vertigo. Her past medical history is concerning for a history of breast and cervical cancer. She also tells me that she has a remote history of diabetes but is no longer on medication for this. For these reasons, I have ordered basic labs as well as a CT of her brain. In the meantime, she will be treated with IV Benadryl and Compazine as well as a liter of fluid. CBC & BMP Diagram 08/02/17 12:50 Calcium Level 8.3 L Last Impressions Head CT 08/02/17 1256 Signed Impressions: CONCLUSION: Unremarkable study. She is feeling better. She will be discharged home with prescriptions for Zofran and meclizine Diagnosis Primary Impression: Vertigo Additional Impression: Nausea & vomiting Qualified Codes: R11.2 - Nausea with vomiting, unspecified Patient Instructions: General Instructions, Vertigo (DC) Med/Other Pt SpecificInfo: Prescription(s) given Scripts Ondansetron Odt (Zofran Odt) 4 Mg Tab 4 MG SL Q6HR Y for Nausea/Vomiting, #30 TAB 0 Refills Prov: Anjana Do MD 08/02/17 Meclizine HCl (Meclizine 25) 25 Mg Tab 1 TAB PO Q6HR for dizziness, #30 Prov: Anjana Do MD 08/02/17 Disposition: 01 DISCHARGE HOME Condition: Stable Anjana Do MD Aug 02, 2017 13:03
[2017-08-02 13:16] LABS: AUTOMATED NEUTROPHIL # 5.9 TH/MM3 (1.8-7.7); BASOPHIL # 0.1 TH/MM3 (0-0.2); BASOPHIL % 0.8 % (0.0-2.0); EOSINOPHIL # 0.2 TH/MM3 (0-0.4); EOSINOPHIL % 2.4 % (0.0-4.0); HEMATOCRIT 43.5 % (35.0-46.0); HEMOGLOBIN 13.6 GM/DL (11.6-15.3); LYMPH % 32.9 % (9.0-44.0); LYMPHOCYTE # 3.3 TH/MM3 (1.0-4.8); MEAN CORPUSCULAR HEMOGLOBIN 27.9 PG (27.0-34.0); MEAN CORPUSCULAR HGB CONC 31.4 % (32.0-36.0); MEAN PLATELET VOLUME 8.7 FL (7.0-11.0); MONO % 5.1 % (0.0-8.0); MONOCYTE # 0.5 TH/MM3 (0-0.9); NEUT % 58.8 % (16.0-70.0); PLATELET COUNT 339 TH/MM3 (150-450); RED BLOOD COUNT 4.89 MIL/MM3 (4.00-5.30); RED CELL DISTRIBUTION WIDTH 12.8 % (11.6-17.2)
[2017-08-02 13:26] LABS: CALCIUM 8.3 MG/DL (8.5-10.1)
[2017-08-02 13:27] LABS: BICARBONATE 27.4 MEQ/L (21.0-32.0)
[2017-08-02 13:30] LABS: CREATININE 0.81 MG/DL (0.50-1.00)
--- NOTE | 2017-08-02 14:11 | RADRPT ---
EXAM DATE: 08/02/2017 1:27 PM EDT AGE/SEX: 37 years / Female INDICATIONS: Dizziness. Nausea and vomiting. CLINICAL DATA: This is the patient's initial encounter. Patient reports that signs and symptoms have been present for 1 day and indicates a pain score of 0/10. MEDICAL/SURGICAL HISTORY: Cerebrovascular disease. Carcinoma, cervical. Diabetes. Hypertension. Asthma. Tubal ligation. Hysterectomy. RADIATION DOSE: 60.01 CTDI (mGy) ; Patient motion COMPARISON: No prior [place] exams available for comparison. TECHNIQUE: CT of the head without contrast. Using automated exposure control and adjustment of the mA and/or kV according to patient size, radiation dose was kept as low as reasonably achievable to ob tain optimal diagnostic quality images. FINDINGS: There is no evidence for intracranial hemorrhage, mass effect, mass lesions, edema, or extr a-axial fluid collections. The visualized bony structures appear intact. The ventricles are normal size for the patient's age. There are no signs of acute infarction for technique. CONCLUSION: Unremarkable study. Electronically signed by: Lukas Thapa MD 08/02/2017 2:09 PM EDT
[2017-08-02 14:33] VITALS: BP 127/68; PULSE 72; RESP 16; O2SAT 98
== END 2017-08-02 14:36 | disposition home or self-care (01) ==
LOC: PHED 12:24
DX: R42 Dizziness and giddiness (principal); R11.2 Nausea with vomiting, unspecified; M79.1 Myalgia; Z85.41 Personal history of malignant neoplasm of cervix uteri; Z85.3 Personal history of malignant neoplasm of breast; E11.9 Type 2 diabetes mellitus without complications; I10 Essential (primary) hypertension; Z86.73 Personal history of transient ischemic attack (TIA), and cerebral infarction without residual deficits; F17.200 Nicotine dependence, unspecified, uncomplicated
CPT/HCPCS: 70450; 80048; 85025; 96361; 96374; 96375; 99284; J0780; J1200; J7030

== ENCOUNTER 2017-09-20 23:43 | Observation (INO) ==
[2017-09-21 00:09] VITALS: TEMP 97.8
[2017-09-21 00:30] LABS: Baso # (Auto) 0.1 th/mm3 (0.0-0.2); Baso % (Auto) 0.8 % (0.0-2.0); Eos # (Auto) 0.2 th/mm3 (0.0-0.4); Eos % (Auto) 1.8 % (0.0-4.0); Hematocrit 38.5 % (35.0-46.0); Hemoglobin 13.2 gm/dL (11.6-15.3); Lymph # (Auto) 2.8 th/mm3 (1.0-4.8); Lymph % (Auto) 28.9 % (9.0-44.0); Mean Corpuscular HGB Conc 34.3 % (32.0-36.0); Mean Corpuscular Volume 87.4 fL (80.0-100.0); Mean Platelet Volume 8.8 fL (7.0-11.0); Mono # (Auto) 0.9 th/mm3 (0.0-0.9); Mono % (Auto) 9.5 % (0.0-8.0); Neut # (Auto) 5.7 th/mm3 (1.8-7.7); Platelet Count 274 th/mm3 (150-450); Red Cell Distribution Width 13.4 % (11.6-17.2); White Blood Count 9.7 th/mm3 (4.0-11.0)
--- NOTE | 2017-09-21 00:30 | ED ---
HPI General Chief Complaint: Headache Stated Complaint: Headache/EVAC Time Seen by Provider: 09/21/17 00:01 History of Present Illness HPI Narrative: This is a 37-year-old female with a history of cervical cancer, breast cancer, previous CVA in 2016, who presents here today with complaints of left-sided retro-orbital eye pain and associated left-sided numbness and tingling. Patient states that her previous CVA affected her left side. She reports that at that time she was given TPA. She denies any weakness of her left upper left lower extremity. She states that she woke up this morning feeling dizzy and lightheaded. She reports this was non-positional. She states that she felt as though she was laying in bed and the room was spinning. She states that she slept until about 1 PM and at that time had pressure behind her left eye. She reports that she had blurry vision in her left eye. She states it became more severe about 45 minutes prior to arrival. There are no other complaints at time of examination. Related Data Home Medications Medication Instructions Recorded Confirmed No Known Home Medications 09/21/17 09/21/17 Allergies Allergy/AdvReac Type Severity Reaction Status Date / Time morphine Allergy Severe LOCAL HIVES Verified 08/02/17 12:32 tramadol Allergy Severe VOMITING/ Verified 08/02/17 12:32 SEIZURE codeine Allergy Mild DEEP SLEEP Verified 08/02/17 12:32 ketorolac Allergy Mild VOMITING Verified 08/02/17 12:32 Review of Systems Except as stated in HPI: all other systems reviewed are negative Constitutional Denies chills and Denies fever(s) Eyes Reports blurry vision (Left eye) and Denies diplopia ENT Reports headache(s) (Left retro-orbital) and Reports other (Left ear pain) Cardiovascular Denies chest pain, Denies syncope and Denies palpitations Respiratory Denies chest congestion and Denies cough Gastrointestinal Denies dysphagia, Denies nausea and Denies vomiting Genitourinary Denies dysuria and Denies urinary urgency Musculoskeletal Denies back pain and Denies myalgias Integumentary/Breasts Reports system reviewed and no additional complaints, except as docu Neurologic Reports headache(s) (Left retro-orbital), Denies focal weakness and Reports other (Left upper and lower extremity tingling and numbness) Psychiatric Reports system reviewed and no additional complaints, except as docu Endocrine Reports system reviewed and no additional complaints, except as docu [facility] Medical History Medical History FHx: cholecystectomy (Acute) H/O: hysterectomy (Acute) HX: breast cancer (Acute) Hx MRSA infection (Acute) Hx of cervical cancer (Acute) Meningitis (Acute) Stroke (Acute) Surgical History Surgical History H/O: knee surgery (Acute) History of tonsillectomy (Acute) Social History Social History Substance History: No History of Abuse Second Hand Smoke Exposure: No Smoking Status: Current every day smoker Tobacco Type: Cigarettes How Often Do You Have a Drink Containing Alcohol: Never Recent Travel in [facility] within the Last 8 Weeks: No Recent Out of Country Travel within the Last 8 Weeks: No Immunization History Tetanus Immunization: Unsure Hx Influenza Vaccine This Season: No Exam Narrative Exam Narrative: GENERAL: Well-developed well-nourished female in no acute respiratory distress. SKIN: Focused skin assessment warm/dry. HEAD: Atraumatic. Normocephalic. EYES: Pupils equal and round. No scleral icterus. No injection or drainage. ENT: No nasal bleeding or discharge. Mucous membranes pink and moist. NECK: Trachea midline. Supple. CARDIOVASCULAR: Regular rate and rhythm. No murmur appreciated. RESPIRATORY: No accessory muscle use. Clear to auscultation. Breath sounds equal bilaterally. GASTROINTESTINAL: Abdomen soft, non-tender, nondistended. Hepatic and splenic margins not palpable. MUSCULOSKELETAL: No obvious deformities. No clubbing. No cyanosis. No edema. NEUROLOGICAL: Awake and alert. No obvious cranial nerve deficits. Motor grossly within normal limits. Normal speech. Patient is alert having episodes where she starts to shake. She states that she feels as though she is having chills but sometimes can control them. Course Initial Documented Vital Signs Temperature 97.8 F 09/20/17 23:53 Pulse Rate 107 H 09/20/17 23:53 Blood Pressure 160/96 H 09/20/17 23:53 Pulse Oximetry 100 09/20/17 23:53 Last Documented Vital Signs Temperature 97.8 F 09/20/17 23:53 Pulse Rate 107 H 09/21/17 00:09 Blood Pressure 160/96 H 09/20/17 23:53 Pulse Oximetry 100 09/20/17 23:53 Medical Decision Making [facility] Narrative Medical decision making narrative: 37-year-old female presents today with complaints of non-positional dizziness, left-sided retro-orbital pain and numbness and tingling to the left upper and lower extremity. Patient's had previous CVA affecting the left side. The patient has no focal deficits other than the left sided numbness. CT brain shows no evidence of acute process. 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 She is out of the window for TPA. She is still dizzy and still has mild discomfort in her retro- orbital area. She will be admitted to the hospital for TIA versus CVA workup. Case was discussed with Dr. Sandy Garcia. She will be observation admission at first. Differential Diagnosis Differential Diagnosis: TIA versus CVA versus posterior circulation CVA versus metabolic derangement Lab Data Result diagrams: 09/21/17 00:15 09/21/17 00:15 Lab Results 09/21/17 09/21/17 09/21/17 Range/Units 00:15 00:15 00:15 WBC 9.7 (4.0-11.0) th/mm3 RBC 4.40 (4.00-5.30) mil/mm3 Hgb 13.2 (11.6-15.3) gm/dL Hct 38.5 (35.0-46.0) % MCV 87.4 (80.0-100.0) fL MCH 30.0 (27.0-34.0) pg MCHC 34.3 (32.0-36.0) % RDW 13.4 (11.6-17.2) % Plt Count 274 (150-450) th/mm3 MPV 8.8 (7.0-11.0) fL Neut % (Auto) 59.0 (16.0-70.0) % Lymph % (Auto) 28.9 (9.0-44.0) % [place] % (Auto) 9.5 H (0.0-8.0) % Eos % (Auto) 1.8 (0.0-4.0) % Baso % (Auto) 0.8 (0.0-2.0) % Neut # (Auto) 5.7 (1.8-7.7) th/mm3 Lymph # (Auto) 2.8 (1.0-4.8) th/mm3 [place] # (Auto) 0.9 (0.0-0.9) th/mm3 Eos # (Auto) 0.2 (0.0-0.4) th/mm3 Baso # (Auto) 0.1 (0.0-0.2) th/mm3 WBC Differential . Differential Comment Auto diff final PT 10.2 (9.8-11.6) sec INR 1.0 Ratio APTT 24.7 (24.3-30.1) sec Sodium 144 (136-145) meq/L Potassium 4.3 (3.5-5.1) meq/L Chloride 107 (98-107) meq/L Carbon Dioxide 30.0 (21.0-32.0) meq/L Anion Gap 7 (5-15) meq/L BUN 18 (7-18) mg/dL Creatinine 0.92 (0.50-1.00) mg/dL Estimated GFR 69 L (>89) mL/min Random Glucose 81 (74-106) mg/dL Calcium 8.6 (8.5-10.1) mg/dL Total Bilirubin 0.2 (0.2-1.0) mg/dL AST 17 (15-37) U/L ALT 27 (10-53) U/L Alkaline Phosphatase 126 H (45-117) U/L C-Reactive Protein 1.70 H (0.00-0.30) mg/dL Total Protein 7.1 (6.4-8.2) g/dL Albumin 3.6 (3.4-5.0) g/dL Urine Color (Yellw/Straw) Urine Clarity (Clear) Urine pH (5.0-8.5) Ur Specific [place] (1.002-1.035) Urine Protein (Neg-Trace) mg/dL Urine Glucose (UA) (Negative) mg/dL Urine Ketones (Negative) mg/dL Urine Occult Blood (Negative) Urine Nitrate (Negative) Urine Bilirubin (Negative) Urine Urobilinogen (Less than 2) mg/dL Ur Leukocyte Esterase (Negative) Urine RBC (0-3) /hpf Urine WBC (0-5) /hpf Ur Squamous Epith Cells (0-5) /hpf Urine Bacteria (None) /hpf Urine Mucus (Occasional) /lpf Micro UA Comment Urine Culture Comments 09/21/17 Range/Units 00:30 WBC (4.0-11.0) th/mm3 RBC (4.00-5.30) mil/mm3 Hgb (11.6-15.3) gm/dL Hct (35.0-46.0) % MCV (80.0-100.0) fL MCH (27.0-34.0) pg MCHC (32.0-36.0) % RDW (11.6-17.2) % Plt Count (150-450) th/mm3 MPV (7.0-11.0) fL Neut % (Auto) (16.0-70.0) % Lymph % (Auto) (9.0-44.0) % [place] % (Auto) (0.0-8.0) % Eos % (Auto) (0.0-4.0) % Baso % (Auto) (0.0-2.0) % Neut # (Auto) (1.8-7.7) th/mm3 Lymph # (Auto) (1.0-4.8) th/mm3 [place] # (Auto) (0.0-0.9) th/mm3 Eos # (Auto) (0.0-0.4) th/mm3 Baso # (Auto) (0.0-0.2) th/mm3 WBC Differential Differential Comment PT (9.8-11.6) sec INR Ratio APTT (24.3-30.1) sec Sodium (136-145) meq/L Potassium (3.5-5.1) meq/L Chloride (98-107) meq/L Carbon Dioxide (21.0-32.0) meq/L Anion Gap (5-15) meq/L BUN (7-18) mg/dL Creatinine (0.50-1.00) mg/dL Estimated GFR (>89) mL/min Random Glucose (74-106) mg/dL Calcium (8.5-10.1) mg/dL Total Bilirubin (0.2-1.0) mg/dL AST (15-37) U/L ALT (10-53) U/L Alkaline Phosphatase (45-117) U/L C-Reactive Protein (0.00-0.30) mg/dL Total Protein (6.4-8.2) g/dL Albumin (3.4-5.0) g/dL Urine Color Yellow (Yellw/Straw) Urine Clarity Cloudy H (Clear) Urine pH 5.0 (5.0-8.5) Ur Specific [place] 1.024 (1.002-1.035) Urine Protein Negative (Neg-Trace) mg/dL Urine Glucose (UA) Negative (Negative) mg/dL Urine Ketones Negative (Negative) mg/dL Urine Occult Blood Small H (Negative) Urine Nitrate Negative (Negative) Urine Bilirubin Negative (Negative) Urine Urobilinogen 2.0 H (Less than 2) mg/dL Ur Leukocyte Esterase Negative (Negative) Urine RBC 1 (0-3) /hpf Urine WBC 1 (0-5) /hpf Ur Squamous Epith Cells 13 (0-5) /hpf Urine Bacteria Rare H (None) /hpf Urine Mucus Few H (Occasional) /lpf Micro UA Comment Culture not ind Urine Culture Comments Culture not ind Imaging Data Radiologist's impression: Head CT 09/21/17 00:04 CONCLUSION: Discharge Plan Discharge Disposition Patient Disposition: 30 Still Patient Discharge Details Diagnosis: Cephalalgia, Numbness and tingling of left arm and leg, Cerebrovascular accident, old Physicians Team ED Provider: Sam Rivera Primary Care Provider: Denny Gonzales Rxs /Orders / Referrals /Forms Prescriptions: No Action No Known Home Medications RF: 0 Discharge Interventions Interventions: Vital Signs Last Done: 09/21/17 02:56 Status ED Status: With Doctor
[2017-09-21 00:48] LABS: Activated Partial Thrombo Time 24.7 sec (24.3-30.1); Prothrombin Time 10.2 sec (9.8-11.6)
--- NOTE | 2017-09-21 00:57 | CT ---
EXAM DATE: 09/21/2017 12:54 AM EDT AGE/SEX: 37 years / Female INDICATIONS: Cephalgia. CLINICAL DATA: This is the patient's initial encounter. Patient reports that signs and symptoms have been present for 1 day and indicates a pain score of 10/10. MEDICAL/SURGICAL HISTORY: Carcinoma, breast. Carcinoma, cervical. Stroke. Meningitis. Hysterect michael. Colostomy. RADIATION DOSE: 56.35 CTDI (mGy) COMPARISON: [facility], CT BRAIN W/O CONTRAST, 08/02/2017. . TECHNIQUE: CT of the head without contrast. Using automated exposure control and adjustment of the mA and/or kV according to patient size, radiation dose was kept as low as reasonably achievable to ob tain optimal diagnostic quality images. DICOM format image data is available electronically for revi ew and comparison. FINDINGS: Cerebrum: The ventricles are normal for age. No evidence of midline shift, mass lesion, hemorrhage or acute infarction. Stable, benign-appearing basal ganglia calcification No extraaxial fluid collec tions are seen. Posterior Fossa: The cerebellum and brainstem are intact. The 4th ventricle is midline. The cerebe llopontine angle is unremarkable. Extracranial: The visualized portion of the orbits is intact. Skull: The calvaria is intact. No evidence of skull fracture. Negative exam. No change from prior. Electronically signed by: Stephan Dorado MD 09/21/2017 12:56 AM EDT
[2017-09-21 01:01] LABS: Bacteria,Urine Rare /hpf; Bilirubin,Urine Negative (Negative); Clarity,Urine Cloudy (Clear); Color,Urine Yellow (Yellw/Straw); Glucose,Urine (UA) Negative (Negative); Leukocyte Esterase,Urine Negative (Negative); Mucus,Urine Few /lpf (Occasional); Nitrite,Urine Negative (Negative); Specific Gravity,Urine 1.024 (1.002-1.035); Squamous Epithelial Cell,Urine 13 /hpf (0-5)
[2017-09-21 01:12] LABS: Alanine Aminotransferase 27 U/L (10-53); Albumin 3.6 g/dL (3.4-5.0); Anion Gap 7 meq/L (5-15); Aspartate Aminotransferase 17 U/L (15-37); Blood Urea Nitrogen 18 mg/dL (7-18); Calcium 8.6 mg/dL (8.5-10.1); Chloride 107 meq/L (98-107); Glomerular Filtration Rate 69 mL/min (>89); Glucose,Random 81 mg/dL (74-106); Potassium 4.3 meq/L (3.5-5.1); Sodium 144 meq/L (136-145)
[2017-09-21 01:14] LABS: Alkaline Phosphatase 126 U/L (45-117); Total Protein 7.1 g/dL (6.4-8.2)
[2017-09-21 02:58] VITALS: RESP 17
[2017-09-21] MEDS ORDERED: Sod Chloride 0.9% Inj 1,000 ML IV.CONT SCH (03:45)
--- NOTE | 2017-09-21 03:49 | P.HP ---
History of Present Illness Service: [facility] Primary Care Physician: Denny Gonzales MD History of Present Illness: 37-year-old female with a past medical history of previous stroke, history of breast cancer and history of cervical cancer presents to the emergency department for the evaluation of headache with associated left-sided numbness and tingling. Patient reports that her headache is retro-orbital on the left side. She states that her previous CVA was also on the left side. The patient reports that she woke up yesterday morning feeling dizzy and lightheaded. She went back to sleep until around 1 PM and at that time awoke with pressure behind her left eye. She reports blurry vision in the left eye. She states that it became more severe prior to her arrival. At the time of our interview, all of the patient's symptoms have resolved and she is resting comfortably in bed sleeping. 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 - Medical History Medical History: Medical History (Last Updated 09/21/17 @ 00:05 by Suzie Bai) FHx: cholecystectomy H/O: hysterectomy HX: breast cancer Hx MRSA infection Hx of cervical cancer Meningitis Stroke - Surgical History Surgical History: Surgical History (Last Updated 09/21/17 @ 00:05 by Suzie Bai) H/O: knee surgery History of tonsillectomy - Tobacco History Second Hand Smoke Exposure: No Tobacco Use In Past 30 Days: Yes Smoking Status: Current every day smoker Tobacco Type: Cigarettes - Alcohol History How Often Do You Have a Drink Containing Alcohol: Never - Substance Use History Substance History: No History of Abuse - Travel History Recent Travel in the [place] Within the Last 8 Weeks: No Recent Travel Out of the Country Within the Last 8 Weeks: No - Immunization History Tetanus Immunization: Unsure Hx Influenza Vaccine This Season: No Medications and Allergies Active Medications: Active Medications Aspirin (Aspirin) 325 mg PO DAILY MARIO Sodium Chloride (Ns Inj) 1,000 mls @ 70 mls/hr IV.CONT .[id number] MARIO Sodium Chloride (Ns Flush) 2 ml IV.FLUSH PRN PRN PRN Reason: FLUSH AFTER USING IV ACCESS Allergies Allergy/AdvReac Type Severity Reaction Status Date / Time morphine Allergy Severe LOCAL HIVES Verified 08/02/17 12:32 tramadol Allergy Severe VOMITING/ Verified 08/02/17 12:32 SEIZURE codeine Allergy Mild DEEP SLEEP Verified 08/02/17 12:32 ketorolac Allergy Mild VOMITING Verified 08/02/17 12:32 Home Medications Medication Instructions Recorded Confirmed Type No Known Home Medications 09/21/17 09/21/17 History Exam Vital signs: Vital Signs 09/20/17 23:53 09/21/17 00:09 09/21/17 02:56 Temperature 97.8 F Pulse Rate 107 H 107 H 100 H Respiratory Rate 17 Blood Pressure 160/96 H 122/59 L Pulse Oximetry 100 99 Intake & Output 09/20/17 09/20/17 09/21/17 06:59 18:59 06:59 Weight 145.15 kg Narrative: Gen.: No acute distress Head: Normocephalic. Atraumatic. EENT: Pupils equal round and reactive to light. Nose without drainage. Airway intact. Throat without injection. Cardiovascular: Regular rate and rhythm. No murmurs, rubs or gallops. Respiratory: Lungs clear to auscultation bilaterally. No wheezes or rhonchi. Abdomen: Soft, nontender, nondistended. No peritoneal signs. Musculoskeletal: No gross deformities. No edema. Skin: No obvious rashes or erythema. Neuro: Sensory and motor grossly intact. Cranial nerves II through XII grossly intact. Results - Labs CBC & Chem 7: 09/21/17 00:15 09/21/17 00:15 Labs: Laboratory Results - last 24 hr 09/21/17 09/21/17 09/21/17 00:15 00:15 00:15 WBC 9.7 RBC 4.40 Hgb 13.2 Hct 38.5 MCV 87.4 MCH 30.0 MCHC 34.3 RDW 13.4 Plt Count 274 MPV 8.8 Neut % (Auto) 59.0 Lymph % (Auto) 28.9 [place] % (Auto) 9.5 H Eos % (Auto) 1.8 Baso % (Auto) 0.8 Neut # (Auto) 5.7 Lymph # (Auto) 2.8 [place] # (Auto) 0.9 Eos # (Auto) 0.2 Baso # (Auto) 0.1 WBC Differential . Differential Comment Auto diff final PT 10.2 INR 1.0 APTT 24.7 Sodium 144 Potassium 4.3 Chloride 107 Carbon Dioxide 30.0 Anion Gap 7 BUN 18 Creatinine 0.92 Estimated GFR 69 L Random Glucose 81 Calcium 8.6 Total Bilirubin 0.2 AST 17 ALT 27 Alkaline Phosphatase 126 H C-Reactive Protein 1.70 H Total Protein 7.1 Albumin 3.6 Urine Color Urine Clarity Urine pH Ur Specific [place] Urine Protein Urine Glucose (UA) Urine Ketones Urine Occult Blood Urine Nitrate Urine Bilirubin Urine Urobilinogen Ur Leukocyte Esterase Urine RBC Urine WBC Ur Squamous Epith Cells Urine Bacteria Urine Mucus Micro UA Comment Urine Culture Comments 09/21/17 00:30 WBC RBC Hgb Hct MCV MCH MCHC RDW Plt Count MPV Neut % (Auto) Lymph % (Auto) [place] % (Auto) Eos % (Auto) Baso % (Auto) Neut # (Auto) Lymph # (Auto) [place] # (Auto) Eos # (Auto) Baso # (Auto) WBC Differential Differential Comment PT INR APTT Sodium Potassium Chloride Carbon Dioxide Anion Gap BUN Creatinine Estimated GFR Random Glucose Calcium Total Bilirubin AST ALT Alkaline Phosphatase C-Reactive Protein Total Protein Albumin Urine Color Yellow Urine Clarity Cloudy H Urine pH 5.0 Ur Specific [place] 1.024 Urine Protein Negative Urine Glucose (UA) Negative Urine Ketones Negative Urine Occult Blood Small H Urine Nitrate Negative Urine Bilirubin Negative Urine Urobilinogen 2.0 H Ur Leukocyte Esterase Negative Urine RBC 1 Urine WBC 1 Ur Squamous Epith Cells 13 Urine Bacteria Rare H Urine Mucus Few H Micro UA Comment Culture not ind Urine Culture Comments Culture not ind - Imaging Impressions Head CT 09/21/17 00:04 CONCLUSION: Caprini VTE Risk Assessment Caprini VTE Risk Assessment: No/Low Risk (score <= 1) Caprini Risk Assessment Model: Point Value = 1 Point Value = 2 Point Value = 3 Point Value = 5 Age 41-60 Minor surgery BMI > 25 kg/m2 Swollen legs Varicose veins or History of unexplained or recurrent spontaneous Oral contraceptives or hormone replacement Sepsis (< 1 month) Serious lung disease, including pneumonia (< 1 month) Abnormal pulmonary function Acute myocardial infarction Congestive heart failure (< 1 month) History of inflammatory bowel disease Medical patient at bed rest Age 61-74 Arthroscopic surgery Major open surgery (> 45 min) Laparoscopic surgery (> 45 min) Malignancy Confined to bed (> 72 hours) Immobilizing plaster cast Central venous access Age >= 75 History of VTE Family history of VTE Factor V Leiden Prothrombin [id number] Lupus anticoagulant Anticardiolipin antibodies Elevated serum homocysteine Heparin-induced thrombocytopenia Other congenital or acquired thrombophilia Stroke (< 1 month) Elective arthroplasty Hip, pelvis, or leg fracture Acute spinal cord injury (< 1 month) Prophylaxis Regimen: Total Risk Factor Score Risk Level Prophylaxis Regimen 0-1 Low Early ambulation 2 Moderate Order ONE of the following: *Sequential Compression Device (SCD) *Heparin 5000 units SQ BID 3-4 Higher Order ONE of the following medications: *Heparin 5000 units SQ TID *Enoxaparin/Lovenox 40 mg SQ daily (WT < 150 kg, CrCl > 30 mL/min) *Enoxaparin/Lovenox 30 mg SQ daily (WT < 150 kg, CrCl > 10-29 mL/min) *Enoxaparin/Lovenox 30 mg SQ BID (WT < 150 kg, CrCl > 30 mL/min) AND/OR *Sequential Compression Device (SCD) 5 or more Highest Order ONE of the following medications: *Heparin 5000 units SQ TID (Preferred with Epidurals) *Enoxaparin/Lovenox 40 mg SQ daily (WT < 150 kg, CrCl > 30 mL/min) *Enoxaparin/Lovenox 30 mg SQ daily (WT < 150 kg, CrCl > 10-29 mL/min) *Enoxaparin/Lovenox 30 mg SQ BID (WT < 150 kg, CrCl > 30 mL/min) AND *Sequential Compression Device (SCD) Assessment and Plan - Plan Assessment/plan: 1. Headache/numbness and tingling on the left side Concern for TIA Differential includes complex migraine CT head negative for acute process Neurology consulted, appreciate recommendations MRI/MRA brain pending, carotid ultrasound pending Aspirin FEN N.p.o. NS at 70 cc/hour Electrolytes: Monitor and replete as needed
[2017-09-21 07:15] VITALS: BP 123/73; PULSE 91; O2SAT 99
[2017-09-21] MEDS ORDERED: Aspirin 325 MG Tablet PO SCH (09:00)
--- NOTE | 2017-09-21 09:23 | US ---
EXAM DATE: 09/21/2017 8:35 AM EDT AGE/SEX: 37 years / Female INDICATIONS: Transischemic attack. Ablation complains of dizziness, nausea and vomiting. CLINICAL DATA: This is the patient's initial encounter. Patient reports that signs and symptoms have been present for 1 day and indicates a pain score of 0/10. MEDICAL/SURGICAL HISTORY: . MRSA. Cervical cancer. Breast cancer. Meningitis. Stroke. . Ch olecystectomy. Hysterectomy. Knee surgery. Tonsillectomy. COMPARISON: No prior exams available for comparison. VELOCITY PARAMETERS: ICA/CCA Ratio: Right 1.1 , Left 1.0 ICA: Right 106 cm/sec, Left 116 cm/sec CCA: Right 95 cm/sec, Left 112 cm/sec ECA: Right 76 cm/sec, Left 98 cm/sec Vertebral: Right 41 cm/sec antegrade, Left 84 cm/sec antegrade FINDINGS: Right Carotid: No significant plaque is visualized.The waveforms are within normal limits. Left Carotid: No significant plaque is visualized. The waveforms are within normal limits. Other: None. Electronically signed by: Yung Hugo MD 09/21/2017 9:22 AM EDT
--- NOTE | 2017-09-21 11:02 | P.AMA ---
AMA Note - AMA Note AMA Statement: Patient Nii Rosas has decided to leave the hospital against medical advice. This patient has the capacity to refuse care and understands the risks of leaving, including permanent disability and/or , and has had an opportunity to ask questions about his/her condition. The patient has been informed that he/she may return for care at any time, and follow up has been arranged/advised. - AMA Note Discharge Disposition: Left Against Medical Advice
[2017-09-21 12:12] LABS: Chol/HDL Ratio 3.29 Ratio; HDL Cholesterol 37.6 mg/dL (40.0-60.0)
[2017-09-21 16:39] LABS: Hemoglobin A1c 5.4 % (4.3-6.0)
== END 2017-09-21 10:50 | disposition left against medical advice (07) ==
LOC: NEPE 23:43 → NEDA 23:43 → NEDH 23:43
PROVIDERS: ADMIT Internal Medicine; ATTEND Internal Medicine